=== PATIENT | male | born 1965 | race Caucasian/White ===

== ENCOUNTER 2020-11-25 17:47 | Emergency (ER) | payer OTHER, SELFPAY ==
[2020-11-25 19:40] VITALS: BP 151/76; PULSE 85; RESP 18; TEMP 36.7; O2SAT 97; BMI 33.0
--- NOTE | 2020-11-25 20:41 | ED_ITS ---
HPI - Wound/Laceration General Chief Complaint: Wound/Laceration Stated Complaint: lac Time Seen by Provider: 11/25/20 20:03 Source: patient Mode of arrival: ambulatory Limitations: no limitations History of Present Illness HPI narrative: Patient tells me he was taking out the trash and there was a metal broom stick which was broken and he cut his hand on this. He has a laceration to the left 4th digit. Tetanus out of date. Onset (ago): hour(s) Extremity Location: left: hand (Fourth digit) Place: home Patient tetanus UTD: No Context: accidental Associated symptoms: none Related Data Allergies Allergy/AdvReac Type Severity Reaction Status Date / Time No Known Allergies Allergy Verified 11/25/20 20:09 Review of Systems Review of Systems: Yes all other systems are reviewed and are negative Constitutional: Constitutional: Reports no additional constitutional complaints, Denies body ache(s), Denies chills, Denies fever(s), Denies headache(s) and Denies weakness Eyes: Eyes: Reports no additional eye complaints and Denies change in vision ENT: Reports system reviewed and no additional complaints, except as documented, Denies dizziness, Denies headache(s), Denies nasal congestion, Denies nasal discharge and Denies neck pain Cardiovascular: Cardiovascular: Reports no additional cardiovascular complaints, Denies chest pain, Denies leg edema and Denies dyspnea Respiratory: Respiratory: Reports no additional respiratory complaints, Denies cough and Denies dyspnea Gastrointestinal: Gastrointestinal: Reports no additional gastrointestinal com plaints, Denies abdominal pain, Denies diarrhea, Denies nausea and Denies vomiting Genitourinary: Genitourinary: Denies urinary incontinence Musculoskeletal: Musculoskeletal: Reports no additional musculoskeletal complaints, Denies back pain, Denies arthralgias, Denies joint swelling, Denies neck pain, Denies numbness and Denies tingling Integumentary/Breasts: Skin/Breast: Reports system reviewed and no additional complaints, except as docu and Denies rash Comments: +skin laceration Neurologic: Reports system reviewed and no additional complaints, except as documented, Denies Abnormal speech present, Denies dizziness, Denies headache(s), Denies numbness, Denies tingling and Denies weakness PMFSH Past Medical History Attestation statement: The following information was validated with the patient. Source: old records reviewed and nursing notes reviewed Medical History Back complaints Social History Social History Advance Directives: No Advance Directives Information Provided: Yes Physical Exam Vital Signs: Vital Signs: Last Vital Signs Temp 98.0 F 11/25/20 19:40 Pulse 85 11/25/20 19:40 Resp 18 11/25/20 19:40 BP 151/76 H 11/25/20 19:40 Pulse Ox 97 11/25/20 19:40 Body Mass Index 33.0 Const: General: cooperative, healthy appearing, comfortable and no acute distress Orientation/consciousness: patient oriented x3 Limitations: no limitations HENMT: Head: Yes normal to inspection Ears: hearing grossly normal bilaterally General nose exam: Normal external nose present Face and sinus: Yes normal facial exam Mouth: Normal oral and palatal mucosa present Throat: Yes posterior oropharynx normal Eyes: General: appearance normal, both eyes and all related structures Pupils: Equal, round and reactive pupils present Neck: Neck: Yes normal visual inspection Chest: Chest palpation & inspection: normal inspection of the chest Resp: Effort & Inspection: normal respiratory effort Auscultation: clear to auscultation bilaterally Cardio: Rate: regular rate Rhythm: regular rhythm Peripheral pulses: Peripheral pulses 2+ throughout GI: Inspection: Yes normal to inspection Palpation (GI): Soft to palpation and nontender Auscultation: normal bowel sounds Back/Spine/Pelvis: Thoracic/Lumbar Spine: thoracic and lumbar spine normal to inspection Skin: General skin exam: no rashes or lesions noted Neuro: General: patient oriented x3, no focal motor deficits and normal sensation to monofilament Cranial nerves: Yes Equal, round and reactive pupils present Cognition (Neuro): normal cognition Speech: No Abnormal speech present Gait exam (Neuro): Normal gait present Motor exam (neuro): 5/5 motor strength present throughout Extrem: General: Yes normal to inspection Hand/finger images: 1. 3 cm laceration with active bleeding noted. Patient is able to flex and extend the finger with no difficulty. Normal cap refill distally Course Course Course Narrative: Laceration to left 4th digit. Full range of motion of the affected digit. Tetanus was updated. See procedure note. Reviewed worrisome signs and symptoms and when to return to the emergency department. Comfortable discharge home. Procedures Laceration Laceration 1: Site: upper extremity Side (If applicable): left Size (cm): 3 Description: linear Depth: simple, single layer Local Anesthetic: lidocaine 2% Pre-repair: wound explored Skin layer closed with: nylon Size (cm): 5-0 Number of sutures: 6 Technique: simple, interrupted Discharge Plan Discharge Clinical Impression: Laceration Patient Disposition: Home, Self-Care Instructions: Finger Laceration (ED) Additional Instructions: Water may run over as discussed Wash with soap and water daily watch for signs of infection (fever, redness, drainage) Sutures out in 7-10 days Referrals: Castillo Luo MD [Primary Care Provider] - 2 days
[2020-11-25] MEDS: Lidocaine HCl 2 % MPF 5 ML VIAL SUBCUT (20:50)
== END 2020-11-25 21:10 | disposition home or self-care (01) ==
PROVIDERS: Emergency Provider Emergency Medicine; PCP Internal Medicine
DX: S61.215A Laceration without foreign body of left ring finger without damage to nail, initial encounter (principal); W26.8XXA Contact with other sharp object(s), not elsewhere classified, initial encounter; Y93.E9 Activity, other interior property and clothing maintenance; Y92.019 Unspecified place in single-family (private) house as the place of occurrence of the external cause; Y99.9 Unspecified external cause status
CPT/HCPCS: 12002; 90471; 90715; 99284

== ENCOUNTER 2020-12-14 14:31 | Outpatient (REF) | payer OTHER, SELFPAY | END 2020-12-14 14:32 | disposition home or self-care (01) | LOC: HO.LAB 14:31 | PROVIDERS: Visit Provider Internal Medicine | DX: Z20.822 Contact with and (suspected) exposure to COVID-19 (principal) | CPT/HCPCS: 36415; C9803; U0003 ==

== ENCOUNTER → 2020-12-25 07:49 | Outpatient (BNVA) | payer SELFPAY | PROVIDERS: PCP Internal Medicine; Visit Provider Internal Medicine | DX: Z02.79 Encounter for issue of other medical certificate (principal) ==

== ENCOUNTER 2020-12-25 08:49 | Outpatient (REF) | payer OTHER, SELFPAY | END 2020-12-25 08:50 | disposition home or self-care (01) | LOC: HO.LAB 08:49 | PROVIDERS: PCP Internal Medicine; Visit Provider Internal Medicine | DX: Z20.822 Contact with and (suspected) exposure to COVID-19 (principal) | CPT/HCPCS: 36415; C9803; U0003 ==

== ENCOUNTER 2021-05-07 18:37 | Outpatient (REF) | payer OTHER, SELFPAY | END 2021-05-07 18:38 | disposition home or self-care (01) | LOC: HO.LNP 18:37 | PROVIDERS: Visit Provider Physician Assistant | DX: R31.29 Other microscopic hematuria (principal) | CPT/HCPCS: 87086 ==

== ENCOUNTER 2021-06-28 09:34 | Outpatient (REF) | payer OTHER, SELFPAY | END 2021-06-28 09:35 | disposition home or self-care (01) | LOC: HO.LAB 09:34 | PROVIDERS: PCP Internal Medicine; Visit Provider Internal Medicine | DX: Z20.822 Contact with and (suspected) exposure to COVID-19 (principal) | CPT/HCPCS: C9803; U0003; U0005 ==

== ENCOUNTER 2022-02-22 10:43 | Outpatient (REF) | payer OTHER, SELFPAY ==
[2022-02-22 13:20] LABS: MANUAL DIFF FLAG NO
[2022-02-22 13:25] LABS: Basophils Percent Auto 0.4 % (0-2); Eosinophils Absolute Auto 0.1 X10*3/uL (0.0-0.4); Eosinophils Percent Auto 1.2 % (0-4); Hematocrit 45.8 % (42.0-52.0); Hemoglobin 15.2 g/dl (14.0-18.0); Imm Gran Abs Auto 0.03 X10*3/uL (0.00-0.03); Imm Gran Pct Auto 0.4 % (0.0-0.4); Lymphocytes Absolute Auto 2.9 X10*3/uL (1.2-4.9); Lymphocytes Percent Auto 34.6 % (20-40); Mean Corpuscular HGB Conc 33.2 g/dl (31.0-36.0); Mean Corpuscular Hemoglobin 28.4 pg (27.0-33.0); Mean Corpuscular Volume 85.6 fL (80.0-98.0); Mean Platelet Volume 11.3 fL (9.4-12.4); Monocytes Absolute Auto 0.7 X10*3/uL (0.1-1.2); Monocytes Percent Auto 8.2 % (2-11); Neutrophils Absolute Auto 4.7 x10*3/uL (2.0-8.3); Neutrophils Percent Auto 55.2 % (45-73); Platelet Count 188 X10*3/uL (160-400); Red Blood Count 5.35 X10*6/uL (4.60-5.80); Red Cell Distribution Width 13.3 % (11.0-16.0); White Blood Count 8.4 X10*3/uL (4.8-10.8)
[2022-02-22 13:56] LABS: Alanine Aminotransferase 20 U/L (0-40); Albumin Level 4.3 g/dL (3.5-5.0); Alkaline Phosphatase 98 U/L (39-117); Anion Gap 12 (12-20); Aspartate Amino Transferase 17 U/L (5-37); Bilirubin Total 0.4 mg/dL (0.0-1.0); Blood Urea Nitrogen 11 mg/dL (9-16); Calcium 9.2 mg/dL (8.4-10.2); Carbon Dioxide 27 mmol/L (22-29); Chloride 105 mmol/L (96-108); Cholesterol 243 mg/dL; Estimated Glomerular Filt Rate > 60; Glucose Random 88 mg/dL (60-115); HDL Cholesterol 29 mg/dL; Potassium 4.4 mmol/L (3.3-5.1); Sodium 140 mmol/L (135-145); Total Protein 7.3 g/dL (6.5-8.0); Triglycerides 831 mg/dL
[2022-02-22 14:04] LABS: Prostate Specific Antigen 1.93 ng/mL (<0.05-4.0); Thyroid Stimulating Hormone 4.12 uIU/mL (0.32-4.0); Vitamin D 25-OH Total 21.8 ng/mL (>30)
== END 2022-02-22 10:44 | disposition home or self-care (01) ==
LOC: HO.MANLDS 10:43
PROVIDERS: PCP Internal Medicine; Visit Provider Internal Medicine
DX: Z00.00 Encounter for general adult medical examination without abnormal findings (principal); Z13.220 Encounter for screening for lipoid disorders; Z13.29 Encounter for screening for other suspected endocrine disorder; Z12.5 Encounter for screening for malignant neoplasm of prostate
CPT/HCPCS: 36415; 80053; 80061; 82306; 84153; 84443; 85025

== ENCOUNTER → 2022-12-15 07:43 | Outpatient (BNVA) | payer SELFPAY | PROVIDERS: PCP Internal Medicine; Visit Provider Physician Assistant Medical | DX: Z02.79 Encounter for issue of other medical certificate (principal) ==

== ENCOUNTER 2023-03-14 08:10 | Outpatient (REF) | payer OTHER, SELFPAY ==
--- NOTE | ~2023-03-14 | MR_ITS ---
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 COMPARISON: None available. TECHNIQUE: Multiplanar multisequence MR imaging of the brain was done without IV contrast. FINDINGS: BRAIN VOLUME: Within normal limits within the limitations of qualitative assessment. STRUCTURAL: There is borderline cerebellar tonsillar ectopia at the foramen magnum on the right, which is an anatomic variant. BRAIN AND MENINGES: DWI sequence demonstrates no restricted diffusion to suggest acute or subacute cerebral ischemia. The brain parenchyma is normal in signal intensity. Gradient refocused imaging demonstrates no abnormal susceptibility-weighted signal loss to suggest hemorrhage, hemosiderin staining or abnormal mineralization. No extra-axial fluid collections, space-occupying process or mass effect are identified. Garcia-white matter interface is preserved. There are small perivascular spaces in the inferolateral basal ganglia bilaterally. VENTRICLES AND SUBARACHNOID SPACES: The fourth ventricle is normal in size with a normal appearing third ventricle. The frontal horns of the lateral ventricles are normal in size and configuration. There is [id number] dilatation of the bodies, atria and occipital horns of the lateral ventricles bilaterally with normal-appearing temporal horns. No hydrocephalus is seen. Sulcal spaces appear within normal range. ORBITAL STRUCTURES: The visualized orbital structures are grossly unremarkable within the limitations of the study. VASCULAR: Signal voids are noted in the visualized major intracranial vessels. OSSEOUS STRUCTURES, SINUSES/MASTOIDS, EXTRACRANIAL SOFT TISSUES: Unremarkable. MR/MR head/brain wo con IMPRESSION: 1. [id number]-dzebrukf dilatation of the lateral ventricles bilaterally without hydrocephalus, as detailed above. Significance uncertain. 2. Otherwise unremarkable non-contrast MRI of the brain. No acute intracranial process. No evidence for hemorrhage, infarction, extra-axial fluid collection, space-occupying process or mass effect. 3. Borderline cerebellar tonsillar ectopia at the foramen magnum on the right, which is an anatomic variant.
== END 2023-03-14 08:11 | disposition home or self-care (01) ==
LOC: HO.MRI 08:10
PROVIDERS: PCP Internal Medicine; Visit Provider Internal Medicine
DX: G43.909 Migraine, unspecified, not intractable, without status migrainosus (principal); H54.7 Unspecified visual loss; Z80.8 Family history of malignant neoplasm of other organs or systems
CPT/HCPCS: 70551

== ENCOUNTER 2023-08-18 11:44 | Outpatient (REF) | payer OTHER, SELFPAY ==
--- NOTE | ~2023-08-18 | XR_ITS ---
EXAMINATION: XR HIP, BILATERAL INCLUDING AP PELVIS XR LUMBAR SPINE CLINICAL INFORMATION: Left-sided sciatica. COMPARISON: None available. TECHNIQUE: 2 AP views of the pelvis as well as AP and lateral views of bilateral hips. 3 views of the lumbar spine. FINDINGS: LUMBAR SPINE: Stabilization rods incompletely imaged in the partially imaged lower thoracic spine. Leftward curvature of the thoracolumbar spine. Multilevel degenerative changes in the lumbar spine with multilevel loss of disc space height and degenerative changes most notable at L4-L5 and L5-S1. Facet arthritis in the lower lumbar spine with possible spondylolysis at L5-S1. AP PELVIS AND BILATERAL HIPS: Small rounded pelvic calcifications are likely vascular. Moderate degenerative changes in the bilateral sacroiliac joints. Degenerative changes with joint space narrowing and hypertrophic change in the bilateral hips. Alignment preserved. XR/XR hips DEB min 3V IMPRESSION: 1. Multilevel degenerative changes in the lumbar spine and facet arthritis most notable at L4-L5 and L5-S1. Possible spondylolysis at L5-S1. 2. Moderate degenerative changes in the bilateral hips. Additional imaging with CT scan or MRI should be considered for better visualization as these modalities are much more sensitive for detection of fracture or other underlying pathology.
--- NOTE | ~2023-08-18 | XR_ITS ---
EXAMINATION: XR HIP, BILATERAL INCLUDING AP PELVIS XR LUMBAR SPINE CLINICAL INFORMATION: Left-sided sciatica. COMPARISON: None available. TECHNIQUE: 2 AP views of the pelvis as well as AP and lateral views of bilateral hips. 3 views of the lumbar spine. FINDINGS: LUMBAR SPINE: Stabilization rods incompletely imaged in the partially imaged lower thoracic spine. Leftward curvature of the thoracolumbar spine. Multilevel degenerative changes in the lumbar spine with multilevel loss of disc space height and degenerative changes most notable at L4-L5 and L5-S1. Facet arthritis in the lower lumbar spine with possible spondylolysis at L5-S1. AP PELVIS AND BILATERAL HIPS: Small rounded pelvic calcifications are likely vascular. Moderate degenerative changes in the bilateral sacroiliac joints. Degenerative changes with joint space narrowing and hypertrophic change in the bilateral hips. Alignment preserved. XR/XR lumbar spine 2-3V IMPRESSION: 1. Multilevel degenerative changes in the lumbar spine and facet arthritis most notable at L4-L5 and L5-S1. Possible spondylolysis at L5-S1. 2. Moderate degenerative changes in the bilateral hips. Additional imaging with CT scan or MRI should be considered for better visualization as these modalities are much more sensitive for detection of fracture or other underlying pathology.
== END 2023-08-18 11:45 | disposition home or self-care (01) ==
LOC: HO.XRAY 11:44
PROVIDERS: PCP Internal Medicine; Visit Provider Physician Assistant
DX: M54.42 Lumbago with sciatica, left side (principal); M47.817 Spondylosis without myelopathy or radiculopathy, lumbosacral region
CPT/HCPCS: 72100; 73522

== ENCOUNTER 2023-09-18 18:25 | Outpatient (REF) | payer OTHER, SELFPAY ==
--- NOTE | ~2023-09-18 | MR_ITS ---
EXAMINATION: MR LUMBAR SPINE WITHOUT CONTRAST CLINICAL INFORMATION: Lumbago with sciatica left side, DDD, rule out herniation. COMPARISON: Lumbar spine radiographs on 08/18/2023. TECHNIQUE: MRI of the lumbar spine was obtained using routine sequences without contrast. FINDINGS: Partially imaged posterior spinal fusion at T10 and T11. Mild levocurvature of the lumbar spine. Mild retrolisthesis at L4-5 and L5-S1. No abnormal bone marrow signal. The vertebral body heights are preserved. Multilevel disc desiccation without significant disc height loss. Multilevel endplate osteophytosis. The visualized spinal cord is normal in caliber. No abnormal cord signal. The conus medullaris terminates at L1. T12-L1: No significant spinal canal or neural foraminal narrowing. L1-2: Bilateral facet arthrosis. No significant spinal canal or neural foraminal narrowing. L2-3: Small disc bulge and bilateral facet arthrosis. No significant spinal canal or neural foraminal narrowing. L3-4: Diffuse disc bulge with superimposed left foraminal disc protrusion. Annular fissure and bilateral facet arthrosis. No significant spinal canal stenosis. Mild left greater than right neural foraminal narrowing with the disc abutting the exiting L3 nerve roots bilaterally. L4-5: Diffuse disc bulge extending into the bilateral neural foramina. Annular fissure and bilateral facet arthrosis. There is also prominence of the dorsal epidural fat. Mild spinal canal stenosis. Mild to moderate left and mild right neural foraminal narrowing with the disc abutting the exiting L4 nerve roots bilaterally. L5-S1: Diffuse disc bulge with superimposed central disc protrusion. Annular fissure and bilateral facet arthrosis. There is also prominence of the ventral and dorsal epidural fat. Moderate spinal canal stenosis with mass effect on the cauda equina nerve roots. Moderate to severe left and mild right neural foraminal narrowing with the disc abutting the exiting L5 nerve roots bilaterally. There is 3.2 x 2.2 cm lipoma in the left paravertebral musculature. Right renal cyst. MR/MR lumbar spine wo con IMPRESSION: Multilevel lumbar spondylosis with superimposed epidural lipomatosis as described above, most notable at L5-S1 where there is moderate spinal canal stenosis with mass effect on the cauda equina nerve roots. There is also associated moderate to severe left neural foraminal narrowing with the disc abutting the exiting L5 nerve roots bilaterally. Mild spinal canal stenosis also identified at L4-5.
== END 2023-09-18 18:26 | disposition home or self-care (01) ==
LOC: HO.MRI 18:25
PROVIDERS: PCP Internal Medicine; Visit Provider Physician Assistant
DX: M54.42 Lumbago with sciatica, left side (principal)
CPT/HCPCS: 72148

== ENCOUNTER 2024-01-31 06:34 | Outpatient (REF) | payer OTHER, SELFPAY ==
[2024-01-31 11:11] LABS: MANUAL DIFF FLAG NO
[2024-01-31 11:14] LABS: Basophils Percent Auto 0.4 % (0-2); Eosinophils Absolute Auto 0.1 X10*3/uL (0.0-0.4); Eosinophils Percent Auto 1.8 % (0-4); Hematocrit 47.9 % (42.0-52.0); Hemoglobin 15.8 g/dl (14.0-18.0); Imm Gran Abs Auto 0.03 X10*3/uL (0.00-0.03); Imm Gran Pct Auto 0.4 % (0.0-0.4); Lymphocytes Absolute Auto 2.4 X10*3/uL (1.2-4.9); Lymphocytes Percent Auto 32.8 % (20-40); Mean Corpuscular Hemoglobin 28.8 pg (27.0-33.0); Mean Corpuscular Volume 87.2 fL (80.0-98.0); Mean Platelet Volume 11.6 fL (9.4-12.4); Monocytes Absolute Auto 0.6 X10*3/uL (0.1-1.2); Monocytes Percent Auto 7.7 % (2-11); Neutrophils Absolute Auto 4.2 x10*3/uL (2.0-8.3); Neutrophils Percent Auto 56.9 % (45-73); Platelet Count 208 X10*3/uL (160-400); Red Blood Count 5.49 X10*6/uL (4.60-5.80); Red Cell Distribution Width 13.5 % (11.0-16.0); White Blood Count 7.4 X10*3/uL (4.8-10.8)
[2024-01-31 11:23] LABS: Estimated Average Glucose 123 mg/dL; Hemoglobin A1c % 5.9 % (<6.0)
[2024-01-31 12:42] LABS: Prostate Specific Antigen 1.45 ng/mL (<0.05-4.0)
[2024-01-31 14:00] LABS: Alanine Aminotransferase 26 U/L (0-40); Albumin Level 3.9 g/dL (3.5-5.0); Alkaline Phosphatase 96 U/L (39-117); Anion Gap 12 (12-20); Aspartate Amino Transferase 28 U/L (5-37); Bilirubin Total 0.2 mg/dL (0.0-1.0); Blood Urea Nitrogen 15 mg/dL (9-16); Calcium 9.1 mg/dL (8.4-10.2); Carbon Dioxide 23 mmol/L (22-29); Chloride 109 mmol/L (96-108); Cholesterol 321 mg/dL (<200); Estimated Glomerular Filt Rate > 60; Glucose Random 112 mg/dL (60-115); HDL Cholesterol 26 mg/dL (>40); Sodium 140 mmol/L (135-145); Total Protein 7.4 g/dL (6.5-8.0); Triglycerides 1297 mg/dL (<150); Vitamin D 25-OH Total 21.7 ng/mL (>30)
[2024-02-03 13:19] LABS: TS Negative Control Passed; TS Panel A 0; TS Panel B 0; TS Positive Control Passed; TSpotTB Negative (Negative)
== END 2024-01-31 06:35 | disposition home or self-care (01) ==
LOC: HO.HMGCLDS 06:34
PROVIDERS: PCP Internal Medicine; Visit Provider Physician Assistant
DX: Z00.00 Encounter for general adult medical examination without abnormal findings (principal); Z12.5 Encounter for screening for malignant neoplasm of prostate; Z11.1 Encounter for screening for respiratory tuberculosis; Z13.6 Encounter for screening for cardiovascular disorders; L40.0 Psoriasis vulgaris; Z79.899 Other long term (current) drug therapy
CPT/HCPCS: 36415; 80053; 80061; 82306; 83036; 84153; 85025; 86481

== ENCOUNTER 2024-02-12 10:30 | Outpatient (AMB) | payer OTHER, SELFPAY ==
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
[2024-02-12 10:45] VITALS: BP 142/80; PULSE 77; RESP 16; O2SAT 97; BMI 34.6
== END 2024-02-12 11:08 | disposition home or self-care (01) ==
PROVIDERS: PCP Internal Medicine; Visit Provider Anesthesiology
DX: M51.36 Other intervertebral disc degeneration, lumbar region (principal); M47.816 Spondylosis without myelopathy or radiculopathy, lumbar region; G58.9 Mononeuropathy, unspecified
CPT/HCPCS: 99204

== ENCOUNTER → 2024-02-12 10:33 | Outpatient (BNVA) | payer OTHER, SELFPAY | PROVIDERS: PCP Internal Medicine; Visit Provider Anesthesiology ==

== ENCOUNTER 2024-05-21 06:16 | Outpatient (REF) | payer OTHER, SELFPAY | END 2024-05-21 06:17 | disposition home or self-care (01) | LOC: CF 06:16 | PROVIDERS: Visit Provider Anesthesiology | DX: M51.36 Other intervertebral disc degeneration, lumbar region (principal); M47.816 Spondylosis without myelopathy or radiculopathy, lumbar region; G58.9 Mononeuropathy, unspecified; M53.3 Sacrococcygeal disorders, not elsewhere classified; M46.1 Sacroiliitis, not elsewhere classified; G89.4 Chronic pain syndrome; Z53.8 Procedure and treatment not carried out for other reasons | CPT/HCPCS: J2795; Q9967 ==

== ENCOUNTER 2024-05-21 08:52 | Outpatient (AMB) | payer OTHER, SELFPAY ==
[2024-05-21 09:00] VITALS: BP 128/60; PULSE 64; RESP 16; O2SAT 97; BMI 34.6
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
== END 2024-05-21 09:35 | disposition home or self-care (01) ==
LOC: HO.PMCPRC 08:52
PROVIDERS: PCP Internal Medicine; Visit Provider Anesthesiology
DX: M51.36 Other intervertebral disc degeneration, lumbar region (principal); M47.816 Spondylosis without myelopathy or radiculopathy, lumbar region; G58.9 Mononeuropathy, unspecified; M53.3 Sacrococcygeal disorders, not elsewhere classified; M46.1 Sacroiliitis, not elsewhere classified; G89.4 Chronic pain syndrome
CPT/HCPCS: 99214

== ENCOUNTER 2024-06-25 07:02 | Outpatient (REF) | payer OTHER, SELFPAY ==
--- NOTE | ~2024-06-25 | FL_ITS ---
EXAMINATION: XR FLUOROSCOPY WITH IMAGES CLINICAL INFORMATION: Sacrococcygeal disorders, not otherwise specified. COMPARISON: MR lumbar 09/18/2023. CR lumbar and hips 08/18/2023. TECHNIQUE: Fluoroscopy provided to: Dr. Beebe Fluoroscopy time: 0.1 minutes DAP: 0.0691 mGycm2 Images: 2 FINDINGS: 2 images right SI joint with needle in place and contrast injection interarticularly. FL/FL guidance in treatment room IMPRESSION: Fluoroscopic guidance. Please refer to the full operative report for details. Electronically signed by: Major Guerrero MD 08/21/2024 05:04 PM EDT
== END 2024-06-25 07:03 | disposition home or self-care (01) ==
LOC: CF 07:02
PROVIDERS: PCP Internal Medicine; Visit Provider Anesthesiology
DX: M53.3 Sacrococcygeal disorders, not elsewhere classified (principal); M51.36 Other intervertebral disc degeneration, lumbar region; G58.9 Mononeuropathy, unspecified; M46.1 Sacroiliitis, not elsewhere classified; G89.4 Chronic pain syndrome
CPT/HCPCS: 27096; J2795; Q9967

== ENCOUNTER 2024-06-25 07:47 | Outpatient (AMB) | payer OTHER, SELFPAY ==
[2024-06-25 07:59] VITALS: BP 148/68; PULSE 60; RESP 17; O2SAT 97
--- NOTE | 2024-06-25 07:59 | MHC.OFFVIS ---
Vital Signs 06/25/24 07:59 06/25/24 08:21 BP 148/68 H 150/70 H Blood Pressure Location Lt brachial Lt brachial Position Sitting Sitting Respiration 17 17 Pulse 60 52 Pulse Source Pulse Oximeter Pulse Oximeter Pulse Oximetry (%) 97 97 Oxygen Delivery Method Room Air Room Air Comment Pre-op Post-op Intake Visit Reasons: RIGHT DIAGNOSTIC SIJ INJECTION Allergies No Known Allergies Allergy (Verified 05/21/24 09:41) PFSH Medical History Back complaints Social History (Updated 02/09/24 @ 10:23 by Melissa Diggs) Patient Tobacco Use Status: Current someday Tobacco user Tobacco use type: Cigar Physical Exam Vital Signs: Last Vital Signs Pulse 52 06/25/24 08:21 Resp 17 06/25/24 08:21 BP 150/70 H 06/25/24 08:21 Pulse Ox 97 06/25/24 08:21 Oxygen Delivery Method Room Air 06/25/24 08:21 Assessment & Plan Assessment & Plan (1) Disc degeneration, lumbar: Code(s): M51.36 - Other intervertebral disc degeneration, lumbar region Category: Medical (2) Spondylosis of lumbar region without myelopathy or radiculopathy: Code(s): M47.816 - Spondylosis without myelopathy or radiculopathy, lumbar region Category: Medical (3) Mononeuropathy, unspecified: Code(s): G58.9 - Mononeuropathy, unspecified Category: Medical (4) Sacroiliac joint dysfunction of right side: Code(s): M53.3 - Sacrococcygeal disorders, not elsewhere classified Category: Medical Plan: Right diagnostic sacroiliac joint injection Informed consent was explained thoroughly to the patient. All questions about benefits and risks for the procedure were answered. Patient came to the operating room and was positioned prone on the operating table with the pillow under the pelvis. Time out was performed delineating name and of the patient, allergies and the nature of the procedure. The lower back and buttocks of the patient were prepped with ChloraPrep prepped and draped with sterile utility towels. C-arm was brought over the operating field and sq picture of patient's pelvis was demonstrated on the screen. For the right joint tilting C-arm contralateral to the site of the joint the most posterior portion of the joints was superimposed with anterior silhouette of the joint. Skin was injected in the projection of the joint slightly medial to the location of the joint with 25 gauge 1/2 inch needle using local lidocaine 2% .After that 22 gauge 3 and 1/2 inch needle was driven to the right joint in tunnel vision fashion. When needle entered the joint capsule injection of the contrast was performed demonstrating intra-articular and minimally periarticular spread of the contrast. After that 5 cc. of ropivacaine 0.5% was injected into the joint. Upon completion of the injections the needle was removed Sterile dressing was applied. Upon completion of the injection patient was taken outside of the operating room to the recovery room where recovered uneventfully. (5) Sacroiliitis: Code(s): M46.1 - Sacroiliitis, not elsewhere classified Category: Medical (6) Chronic pain syndrome: Code(s): G89.4 - Chronic pain syndrome Category: Medical Plan The patient is suffering from multiple pain generators and the nature of the complaints today changed with emphasis on the right sacroiliac joint. I will schedule this patient for diagnostic sacroiliac joint injection. Today the patient's level is low 4/10 and that is will be hardly diagnostic if we will perform injection today. So we will reschedule the procedure for right sacroiliac joint injection in the near future. Orders: Orders FL guidance in treatment room Today M53.3 - Sacrococcygeal disorders, not elsewhere classified Coding Level of Care Code Procedure Only Diagnoses Disc degeneration, lumbar M51.36 Spondylosis of lumbar region without myelopathy or radiculopathy M47.816 Mononeuropathy, unspecified G58.9 Sacroiliac joint dysfunction of right side M53.3 Sacroiliitis M46.1 Chronic pain syndrome G89.4
[2024-06-25 08:21] VITALS: BP 150/70; PULSE 52; RESP 17; O2SAT 97
== END 2024-06-25 08:15 | disposition home or self-care (01) ==
LOC: HO.PMCPRC 07:47
PROVIDERS: PCP Internal Medicine; Visit Provider Anesthesiology
DX: M51.36 Other intervertebral disc degeneration, lumbar region (principal); M47.816 Spondylosis without myelopathy or radiculopathy, lumbar region; G58.9 Mononeuropathy, unspecified; M53.3 Sacrococcygeal disorders, not elsewhere classified; M46.1 Sacroiliitis, not elsewhere classified; G89.4 Chronic pain syndrome
CPT/HCPCS: 27096

== ENCOUNTER 2024-07-01 09:34 | Outpatient (AMB) | payer OTHER, SELFPAY ==
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
[2024-07-01 09:41] VITALS: BP 150/80; PULSE 72; RESP 17; O2SAT 94; BMI 34.2
== END 2024-07-01 09:54 | disposition home or self-care (01) ==
PROVIDERS: PCP Internal Medicine; Visit Provider Anesthesiology
DX: M51.36 Other intervertebral disc degeneration, lumbar region (principal); M47.816 Spondylosis without myelopathy or radiculopathy, lumbar region; G58.9 Mononeuropathy, unspecified; M53.3 Sacrococcygeal disorders, not elsewhere classified; M46.1 Sacroiliitis, not elsewhere classified; G89.4 Chronic pain syndrome
CPT/HCPCS: 99214

== ENCOUNTER → 2024-07-01 09:34 | Outpatient (BNVA) | payer OTHER, SELFPAY | PROVIDERS: PCP Internal Medicine; Visit Provider Anesthesiology ==

== ENCOUNTER 2024-08-13 07:15 | Outpatient (REF) | payer OTHER, SELFPAY | END 2024-08-13 07:16 | disposition home or self-care (01) | LOC: CF 07:15 | PROVIDERS: Visit Provider Anesthesiology | DX: M53.3 Sacrococcygeal disorders, not elsewhere classified (principal) | CPT/HCPCS: 27096; J2795; J3301; Q9967 ==

== ENCOUNTER 2024-08-13 12:57 | Outpatient (AMB) | payer OTHER, SELFPAY ==
--- NOTE | 2024-08-13 13:08 | MHC.OFFVIS ---
Vital Signs 08/13/24 14:03 08/13/24 14:03 BP 143/68 H 153/74 H Blood Pressure Location Lt brachial Lt brachial Position Sitting Sitting Respiration 16 16 Pulse 60 67 Pulse Source Pulse Oximeter Pulse Oximeter Pulse Oximetry (%) 98 97 Oxygen Delivery Method Room Air Room Air Comment pre-op post-op Intake Visit Reasons: RIGHT THERAPEUTIC SIJ INJECTION Allergies No Known Allergies Allergy (Verified 08/13/24 14:04) PFSH Medical History Back complaints Social History (Updated 02/09/24 @ 10:23 by Melissa Diggs) Patient Tobacco Use Status: Current someday Tobacco user Tobacco use type: Cigar Physical Exam Vital Signs: Last Vital Signs Pulse 67 08/13/24 14:03 Resp 16 08/13/24 14:03 BP 153/74 H 08/13/24 14:03 Pulse Ox 97 08/13/24 14:03 Oxygen Delivery Method Room Air 08/13/24 14:03 Assessment & Plan Assessment & Plan (1) Sacroiliitis: Code(s): M46.1 - Sacroiliitis, not elsewhere classified Category: Medical (2) Sacroiliac joint dysfunction of right side: Code(s): M53.3 - Sacrococcygeal disorders, not elsewhere classified Category: Medical Plan Right therapeutic sacroiliac joint injection. Informed consent was explained thoroughly to the patient. All questions about benefits and risks for the procedure were answered. Patient came to the operating room and was positioned prone on the operating table with the pillow under the pelvis. Time out was performed delineating name and of the patient, allergies and the nature of the procedure. The lower back and buttocks of the patient were prepped with ChloraPrep prepped and draped with sterile utility towels. C-arm was brought over the operating field and sq picture of patient's pelvis was demonstrated on the screen. For the right joint tilting C-arm contralateral to the site of the joint the most posterior portion of the joints was superimposed with anterior silhouette of the joint. Skin was injected in the projection of the joint slightly medial to the location of the joint with 25 gauge 1/2 inch needle using local lidocaine 2% .After that 22 gauge 3 and 1/2 inch needle was driven to the right joint in tunnel vision fashion. When needle entered the joint capsule injection of the contrast was performed demonstrating intra-articular and minimally periarticular spread of the contrast. After that 4 cc. of ropivacaine 0.5% mixed with Kenalog was injected into the joint. Upon completion of the injections the needle was removed, Total dose of Kenalog 40 mg. The needle was removed. Sterile dressing was applied. Upon completion of the injection patient was taken outside of the operating room to the recovery room where recovered uneventfully. Orders: Orders FL guidance in treatment room Today M53.3 - Sacrococcygeal disorders, not elsewhere classified Coding Level of Care Code Procedure Only Diagnoses Sacroiliitis M46.1 Sacroiliac joint dysfunction of right side M53.3
[2024-08-13 14:03] VITALS: BP 143/68; BP 153/74; PULSE 60; PULSE 67; RESP 16; O2SAT 97; O2SAT 98
== END 2024-08-13 13:54 | disposition home or self-care (01) ==
LOC: HO.PMCPRC 12:57
PROVIDERS: PCP Internal Medicine; Visit Provider Anesthesiology
DX: M46.1 Sacroiliitis, not elsewhere classified (principal); M53.3 Sacrococcygeal disorders, not elsewhere classified
CPT/HCPCS: 27096

== ENCOUNTER 2024-09-30 13:48 | Outpatient (AMB) | payer OTHER, SELFPAY ==
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
[2024-09-30 13:58] VITALS: BP 142/72; PULSE 67; RESP 16; O2SAT 99; BMI 31.6
== END 2024-09-30 14:02 | disposition home or self-care (01) ==
LOC: HO.PMC 13:53
PROVIDERS: PCP Internal Medicine; Visit Provider Anesthesiology
DX: M51.369 Other intervertebral disc degeneration, lumbar region without mention of lumbar back pain or lower extremity pain (principal); M47.816 Spondylosis without myelopathy or radiculopathy, lumbar region; G58.9 Mononeuropathy, unspecified; M53.3 Sacrococcygeal disorders, not elsewhere classified; M46.1 Sacroiliitis, not elsewhere classified; G89.4 Chronic pain syndrome
CPT/HCPCS: 99213

== ENCOUNTER → 2024-09-30 13:48 | Outpatient (BNVA) | payer OTHER, SELFPAY | PROVIDERS: PCP Internal Medicine; Visit Provider Anesthesiology ==

== ENCOUNTER → 2024-12-10 08:03 | Outpatient (BNVA) | payer SELFPAY | PROVIDERS: PCP Internal Medicine; Visit Provider Registered Nurse | DX: Z02.79 Encounter for issue of other medical certificate (principal) ==

== ENCOUNTER 2025-02-14 06:26 | Outpatient (REF) | payer OTHER, SELFPAY ==
[2025-02-14 10:14] LABS: MANUAL DIFF FLAG NO
[2025-02-14 10:24] LABS: Basophils Percent Auto 0.3 % (0-2); Eosinophils Absolute Auto 0.1 X10*3/uL (0.0-0.4); Eosinophils Percent Auto 0.8 % (0-4); Hematocrit 46.8 % (42.0-52.0); Hemoglobin 15.7 g/dl (14.0-18.0); Imm Gran Abs Auto 0.03 X10*3/uL (0.00-0.03); Imm Gran Pct Auto 0.4 % (0.0-0.4); Lymphocytes Absolute Auto 2.3 X10*3/uL (1.2-4.9); Lymphocytes Percent Auto 29.6 % (20-40); Mean Corpuscular HGB Conc 33.5 g/dl (31.0-36.0); Mean Corpuscular Volume 86.3 fL (80.0-98.0); Mean Platelet Volume 11.4 fL (9.4-12.4); Monocytes Absolute Auto 0.6 X10*3/uL (0.1-1.2); Monocytes Percent Auto 7.2 % (2-11); Neutrophils Absolute Auto 4.9 x10*3/uL (2.0-8.3); Neutrophils Percent Auto 61.7 % (45-73); Platelet Count 183 X10*3/uL (160-400); Red Blood Count 5.42 X10*6/uL (4.60-5.80); Red Cell Distribution Width 13.1 % (11.0-16.0); White Blood Count 7.9 X10*3/uL (4.8-10.8)
[2025-02-14 10:35] LABS: Estimated Average Glucose 120 mg/dL; Hemoglobin A1c % 5.8 % (<6.0)
[2025-02-14 10:39] LABS: Alanine Aminotransferase 24 U/L (0-40); Albumin Level 4.3 g/dL (3.5-5.0); Alkaline Phosphatase 82 U/L (39-117); Anion Gap 9 (12-20); Aspartate Amino Transferase 24 U/L (5-37); Bilirubin Total 0.5 mg/dL (0.0-1.0); Blood Urea Nitrogen 19 mg/dL (9-16); Carbon Dioxide 24 mmol/L (22-29); Chloride 112 mmol/L (96-108); Cholesterol 129 mg/dL (<200); Estimated Glomerular Filt Rate > 60; Glucose Random 99 mg/dL (60-115); HDL Cholesterol 37 mg/dL (>40); LDL Cholesterol Calculated 59 mg/dL (<100); Potassium 3.9 mmol/L (3.3-5.1); Sodium 141 mmol/L (135-145); Total Protein 7.4 g/dL (6.5-8.0); Triglycerides 167 mg/dL (<150)
[2025-02-14 10:49] LABS: Prostate Specific Antigen 1.48 ng/mL (<0.05-4.0)
[2025-02-14 11:00] LABS: Vitamin D 25-OH Total 76.5 ng/mL (>30)
[2025-02-17 14:48] LABS: TS Negative Control Passed; TS Panel A 0; TS Panel B 0; TS Positive Control Passed; TSpotTB Negative (Negative)
== END 2025-02-14 06:27 | disposition home or self-care (01) ==
LOC: HO.HMGCLDS 06:26
PROVIDERS: PCP Internal Medicine; Visit Provider Physician Assistant
DX: Z00.00 Encounter for general adult medical examination without abnormal findings (principal); Z12.5 Encounter for screening for malignant neoplasm of prostate; Z13.1 Encounter for screening for diabetes mellitus; Z13.6 Encounter for screening for cardiovascular disorders
CPT/HCPCS: 36415; 80053; 80061; 82306; 83036; 84153; 85025; 86481

== ENCOUNTER 2025-02-20 15:09 | Outpatient (AMB) | payer OTHER, SELFPAY ==
[2025-02-20 15:10] VITALS: BP 140/71; PULSE 64; O2SAT 100; BMI 31.3
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
== END 2025-02-20 15:44 | disposition home or self-care (01) ==
LOC: HO.PMC 15:10
PROVIDERS: PCP Internal Medicine; Visit Provider Anesthesiology
DX: M51.369 Other intervertebral disc degeneration, lumbar region without mention of lumbar back pain or lower extremity pain (principal); M47.816 Spondylosis without myelopathy or radiculopathy, lumbar region; G58.9 Mononeuropathy, unspecified; M53.3 Sacrococcygeal disorders, not elsewhere classified; M46.1 Sacroiliitis, not elsewhere classified; G89.4 Chronic pain syndrome; G89.29 Other chronic pain
CPT/HCPCS: 99213

== ENCOUNTER → 2025-02-20 15:09 | Outpatient (BNVA) | payer OTHER, SELFPAY | PROVIDERS: PCP Internal Medicine; Visit Provider Anesthesiology ==

== ENCOUNTER 2025-04-15 06:14 | Outpatient (REF) | payer OTHER, SELFPAY ==
--- NOTE | ~2025-04-15 | FL_ITS ---
EXAMINATION: XR FLUOROSCOPY WITH IMAGES CLINICAL INFORMATION: Left SI joint pain management injection. COMPARISON: None available. TECHNIQUE: Fluoroscopy provided to: Dr. Beebe Fluoroscopy time: 0.0 minutes DAP: 0.0520 mGycm2 Images: 2 FINDINGS: 2 fluoroscopic spot images taken during injection of the left SI joint. Please refer to the full procedural report for details. FL/FL guidance in treatment room IMPRESSION: Fluoroscopic guidance. Electronically signed by: Major Guerrero MD 04/15/2025 03:45 PM EDT
--- OUTSIDE RECORDS SUMMARY | 2025-04-15 06:16 | XMS_ITS | Patient Health Record ---
[facility] Address [address] [place] [id number] Care Team Providers Care Counseling Director Name Role Phone Valerio GO, Castillo Primary Care Provider Nohemi Rangel Unavailable [phone] Allergies No Known Allergies Reason For Referral No Information Medications Medication SIG (Take, Route, Fr equency, Duration) Notes Start Date End Date Status Loratadine 10 MG TAKE 1 TABLET BY RODRIGO TH EVERY DAY Oral for 30 Days Active Social History Tobacco Use: Social History Observation Description Date Details (start date - stop date) Former Smoker NA - NA Tobacco Use/Smoking Question Answer Notes Are you a: former smoker Additional Findings: Tobacco Non-User Current no n-smoker Alcohol Screen Question Answer Notes Did you have a drink containing alcohol in the p ast year? No Points 0 Interpretation Negative Tobacco use other than smoking: Question Answer Notes Are you an other tobacco user? No Plan Of Treatment Pending Test Test Name Order Date X ray : Foot, left 3V 06/28/2023 X ray : Foot, right 3V 06/28/2023 Insurance Providers Payer Name Payer Address Payer Phone Subscriber Number Group Number Insured Name Patient Relationship to Insured Coverage Start Date Coverage End Date [employer] [address] [place] [address] [id number] Nadir, Volodymyr Self - patient is the insured Medical (General) History Medical History History ICD Code Back,Hip,and Knee pain Broken bones CAD (Cholesterol) Headaches/Migraines Numbness Psoriasis/eczema Reflux ( GERD) Chicken pox Joint implants/screws Surgical History Surgery Date(Month/Year) back surgery 2017
== END 2025-04-15 06:15 | disposition home or self-care (01) ==
LOC: CF 06:14
PROVIDERS: Visit Provider Anesthesiology
DX: M53.3 Sacrococcygeal disorders, not elsewhere classified (principal); G89.29 Other chronic pain
CPT/HCPCS: 27096; J2003; J2795; Q9967

== ENCOUNTER 2025-04-15 13:19 | Outpatient (AMB) | payer OTHER, SELFPAY ==
[2025-04-15 13:28] VITALS: BP 128/64; PULSE 66; RESP 16; O2SAT 98
--- NOTE | 2025-04-15 13:28 | MHC.OFFVIS ---
Vital Signs 04/15/25 13:28 04/15/25 14:04 BP 128/64 140/76 H Blood Pressure Location Lt brachial Lt brachial Position Sitting Sitting Respiration 16 16 Pulse 66 86 Pulse Source Pulse Oximeter Pulse Oximeter Pulse Oximetry (%) 98 98 Oxygen Delivery Method Room Air Room Air Intake Visit Reasons: LEFT DIAGNOSTIC SIJ INJECTION Counter Molder Required: No Allergies No Known Allergies Allergy (Verified 04/15/25 13:28) Medication List - Last Reconciled 04/15/25 by Cristiana Cotres LPN atorvastatin 20 mg PO DAILY loratadine 10 mg PO DAILY nabumetone 500 mg PO BID ustekinumab (Stelara) mg subcut PFSH Medical History Back complaints Social History Patient Tobacco Use Status: Current someday Tobacco user Tobacco use type: Cigar Physical Exam Vital Signs: Last Vital Signs Pulse 86 04/15/25 14:04 Resp 16 04/15/25 14:04 BP 140/76 H 04/15/25 14:04 Pulse Ox 98 04/15/25 14:04 Oxygen Delivery Method Room Air 04/15/25 14:04 Assessment & Plan Assessment & Plan (1) Chronic left SI joint pain: Code(s): M53.3 - Sacrococcygeal disorders, not elsewhere classified; G89.29 - Other chronic pain Category: Medical (2) Sacroiliitis: Code(s): M46.1 - Sacroiliitis, not elsewhere classified Category: Medical Plan Left diagnostic sacroiliac joint injection Informed consent was explained thoroughly to the patient.? All questions about benefits and risks for the procedure were answered. Patient came to the operating room she was positioned prone on the operating table with the pillow under her abdomen.? Time-out was performed delineating correct site and side of the procedure name and date of of the patient. Her lower back and buttocks was prepped with ChloraPrep prepped and draped with sterile towels.C-arm was brought over the operating field and sq picture of patient's pelvis was demonstrated on the screen.? For the left joint tilting C-arm contralateral to the site of the joint of the patient the most posterior portion of the joints were superimposed of the anterior portion of the joint . Skin was injected in the projection of the joint slightly medial to the location of the joint with 25 gauge 1/2 inch needle using local lidocaine 2% mixed with ropivacaine 0.5% 1 After that 22 gauge 3.5 inch needle was driven to the left joint in tunnel vision fashion.? When needle entered the joint capsule injection of the contrast was performed demonstrating intra-articular and minimally periarticular spread of the contrast.? After that of ropivacaine 0.5% 5 mL was injected into each joint.? Upon completion of the injections the needles were removed and pressure were applied.? Sterile dressing was applied Orders: Orders FL guidance in treatment room Today G89.29 - Other chronic pain, M53.3 - Sacrococcygeal disorders, not elsewhere classified Coding Level of Care Code Procedure Only Diagnoses Chronic left SI joint pain M53.3; G89.29 Sacroiliitis M46.1
[2025-04-15 14:04] VITALS: BP 140/76; PULSE 86; RESP 16; O2SAT 98
--- OUTSIDE RECORDS SUMMARY | 2025-04-15 14:26 | XMS_ITS | Data Portability ---
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 diet improvement Fracture Risk:no history of fractures; no recent explained fracture; no sudden unexplained fractures; no previous musculoskeletal injuries Physical Activity:exercises on a regular basis; recent increase in physical activity; good physical condition Additional Lifestyle Factors:no tobacco use; no alcohol intake; stopped drinking alcohol Depression Risk:never feels sad, empty, or tearful; no loss of interest in activities; no significant changes in weight; no sleep disturbances or insomnia; no agitation; no loss of energy; no feelings of worthlessness or guilt; no thoughts of suicide; no history of depression; no history of mood disorders Hearing:no loss of hearing Vision:no vision problems VALORIE GARCIA [address] [place] [address], [phone], [facility] 02/12/2025 10:37:53
== END 2025-04-15 14:05 | disposition home or self-care (01) ==
LOC: HO.PMCPRC 13:19
PROVIDERS: PCP Internal Medicine; Visit Provider Anesthesiology
DX: M53.3 Sacrococcygeal disorders, not elsewhere classified (principal); M46.1 Sacroiliitis, not elsewhere classified; G89.29 Other chronic pain
CPT/HCPCS: 27096

== ENCOUNTER 2025-04-18 11:04 | Outpatient (AMB) | payer OTHER, SELFPAY ==
--- NOTE | 2025-04-18 11:05 | MHC.OFFVIS ---
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 He reports 90% pain relief for 6 hours after the procedure. Pain today is rated as a 3/10, occurs during positional changes or walking around in daily activities. [employer] Worker daily physical therapy exercises temporarily improved his condition but did not eliminate pain, described as sciatica-like. Historical data reveals successful sacroiliac injection on right side previously, inspiring hope for further steroid intervention on the affected left side. The patient reports frustration due to ongoing discomfort and stress from limited mobility. - Onset and Timing: Pain returned a few hours after the left sacroiliac joint injection performed three days ago. - Quality and Character: Intermittent pain primarily on the left side, with sciatica-like characteristics. - Location: Left sacroiliac joint area, with concurrent neck and lower back muscle pain. - Radiation: Occasionally radiates; previously noted on the right side. - Exacerbating Factors: Positional changes, sitting, standing, walking. - Relieving Factors: Initial relief from injection 3 days ago. Exercises for physical therapy provided temporary improvement. - Activities Interference: Interferes with sitting, standing, walking, and impacts sleep. - Affect: Pain causing frustration due to limited mobility, impacting daily activities. - Analgesia: Pain level initially reduced to zero post-injection, now approximately level 3. - Adverse Effects: Not specifically outlined in conversation. - Activities of Daily Living: Affected by pain, which limits basic functional movements such as getting up from seated positions. - Aberrant Drug-Related Behaviors: None reported or discussed. [facility] Medical History Back complaints Social History Patient Tobacco Use Status: Current someday Tobacco user Tobacco use type: Cigar Review of Systems Const Details: - Musculoskeletal: Reports sacroiliac joint pain, lower back muscle pain, and neck pain. - Neurological: Reports symptoms consistent with sciatica. Physical Exam Vital Signs: Last Vital Signs Pulse 77 04/18/25 11:08 BP 157/79 H 04/18/25 11:08 Pulse Ox 99 04/18/25 11:08 Oxygen Delivery Method Room Air 04/18/25 11:08 General: awake, alert, oriented. Answers questions appropriately. Fully engaged in examination. Skin: warm, dry, intact HEENT: Normocephalic. Hearing intact. Cardiac: External chest normal in appearance. Respiratory: No cough, audible wheezing or stridor. Abdomen: without gross distension. MS: No obvious swelling or deformities. Able to transition from sit to stand unassisted. Ambulates with bilaterally normal heel strike and toe off Neurological: Oriented to person, place, time and situation. Thought process intact. No gait abnormalities appreciated. Psychiatric: Appropriate mood and affect. Good judgment and insight. Results Reviewed Results Reviewed: 09/18/23 MR/MR lumbar spine wo con FINDINGS: Partially imaged posterior spinal fusion at T10 and T11. Mild levocurvature of the lumbar spine. Mild retrolisthesis at L4-5 and L5-S1. No abnormal bone marrow signal. The vertebral body heights are preserved. Multilevel disc desiccation without significant disc height loss. Multilevel endplate osteophytosis. The visualized spinal cord is normal in caliber. No abnormal cord signal. The conus medullaris terminates at L1. T12-L1: No significant spinal canal or neural foraminal narrowing. L1-2: Bilateral facet arthrosis. No significant spinal canal or neural foraminal narrowing. L2-3: Small disc bulge and bilateral facet arthrosis. No significant spinal canal or neural foraminal narrowing. L3-4: Diffuse disc bulge with superimposed left foraminal disc protrusion. Annular fissure and bilateral facet arthrosis. No significant spinal canal stenosis. Mild left greater than right neural foraminal narrowing with the disc abutting the exiting L3 nerve roots bilaterally. L4-5: Diffuse disc bulge extending into the bilateral neural foramina. Annular fissure and bilateral facet arthrosis. There is also prominence of the dorsal epidural fat. Mild spinal canal stenosis. Mild to moderate left and mild right neural foraminal narrowing with the disc abutting the exiting L4 nerve roots bilaterally. L5-S1: Diffuse disc bulge with superimposed central disc protrusion. Annular fissure and bilateral facet arthrosis. There is also prominence of the ventral and dorsal epidural fat. Moderate spinal canal stenosis with mass effect on the cauda equina nerve roots. Moderate to severe left and mild right neural foraminal narrowing with the disc abutting the exiting L5 nerve roots bilaterally. There is 3.2 x 2.2 cm lipoma in the left paravertebral musculature. Right renal cyst. IMPRESSION: Multilevel lumbar spondylosis with superimposed epidural lipomatosis as described above, most notable at L5-S1 where there is moderate spinal canal stenosis with mass effect on the cauda equina nerve roots. There is also associated moderate to severe left neural foraminal narrowing with the disc abutting the exiting L5 nerve roots bilaterally. Mild spinal canal stenosis also identified at L4-5. Assessment & Plan Assessment & Plan (1) Disc degeneration, lumbar: Code(s): M51.36 - Other intervertebral disc degeneration, lumbar region Category: Medical (2) Spondylosis of lumbar region without myelopathy or radiculopathy: Code(s): M47.816 - Spondylosis without myelopathy or radiculopathy, lumbar region Category: Medical (3) Mononeuropathy, unspecified: Code(s): G58.9 - Mononeuropathy, unspecified Category: Medical (4) Sacroiliac joint dysfunction of right side: Code(s): M53.3 - Sacrococcygeal disorders, not elsewhere classified Category: Medical (5) Sacroiliitis: Code(s): M46.1 - Sacroiliitis, not elsewhere classified Category: Medical (6) Chronic pain syndrome: Code(s): G89.4 - Chronic pain syndrome Category: Medical (7) Chronic left SI joint pain: Code(s): M53.3 - Sacrococcygeal disorders, not elsewhere classified; G89.29 - Other chronic pain Category: Medical Plan The primary focus is the management of chronic sacroiliac joint dysfunction pain. A left-sided steroid injection will be planned, given consent. Remote history of successful treatment on the opposite side influenced this decision. Other interventions, such as radiofrequency ablation, were discussed but deferred due to potential insurance limitations. The patient was instructed on readjusting a sacroiliac belt, accounting for recent weight loss, to utilize during daily activities for added support and pain relief. Continuous assessment of treatment response will determine any need for future intervention. I discussed with the patient the administration of a steroid injection, emphasizing potential for extended relief selene to previous right-side treatment. We reviewed alternate strategies including radiofrequency ablation/curonix peripheral nerve stimulator, although insurance coverage may affect options. The patient consented to the treatment plan proposed. He was advised on adjusting his sacroiliac belt to better accommodate recent weight reduction, promoting optimal support. Future follow-ups will assess efficacy and any need for additional interventions. We aim to manage chronic pain effectively balancing efficacy and side effect considerations. Will schedule for fluoroscopy guided left therapeutic sacroiliac joint injection with local anesthetic Patient was informed and verbally consented to the use of an ambient scribe for clinic note documentation during this visit. Patient Instructions: - Await call to schedule the left-sided steroid injection. - Adjust your sacroiliac belt to fit more snugly due to recent weight loss. - Monitor pain levels, focusing on sitting and standing transitions, and report any significant changes. - Follow through with physical therapy exercises as advised for core strength. - Reach out for further instructions if symptoms significantly worsen or you experience new symptoms. Coding Level of Care Code Tele Est Pt Level 3 (46833) Complex EM visit Add On G2211 Diagnoses Disc degeneration, lumbar M51.36 Spondylosis of lumbar region without myelopathy or radiculopathy M47.816 Mononeuropathy, unspecified G58.9 Sacroiliac joint dysfunction of right side M53.3 Sacroiliitis M46.1 Chronic pain syndrome G89.4 Chronic left SI joint pain M53.3; G89.29
[2025-04-18 11:08] VITALS: BP 157/79; PULSE 77; O2SAT 99
--- OUTSIDE RECORDS SUMMARY | 2025-04-18 11:11 | XMS_ITS | Data Portability ---
Author Organization [facility], Home Service Address [address] [place] [address] Assessment Encounter Date Assessment Date Assessment LastModified [...] Lab CMP, serum or plasma 2024 025 [facility], [facility] [place] [address] [address], [address], 02/17/2025 11:30:18 CBC w/ auto diff 2024 025 [facility], [place], [address], 02/12/2025 10:28:51 PSA, serum or plasma 2024 025 [facility], [place], [address], 02/12/2025 10:28:51 lipid panel, blood 2024 025 [facility], [place], [address], 02/12/2025 10:28:51 hemoglobi n A1c, QN, blood 2024 025 [facility], [address] [place] [address] [place], [address], 02/12/2025 10:28:51 vitamin D, 25-hydrox y, total, serum 2024 025 [facility], [address] [place] [address] [place], [address], 02/12/2025 10:28:51 CMP, serum or plasma 2023 024 [facility], [address] [place] [address], [address], 02/01/2024 11:28:12 CBC w/ auto diff 2023 024 [facility], [address] [place] [address], [address], 02/01/2024 11:28:13 lipid panel, blood 2023 024 [facility], [address] [place] [address], [address], 02/01/2024 11:28:13 PSA, serum or plasma 2023 024 [facility], [address] [place] [address], [address], 02/01/2024 11:28:13 hemoglobi n A1c, QN, blood 2023 024 [facility], [address] [place] [address], [address], 02/01/2024 11:28:13 vitamin D, 25-hydrox y, total, serum 2023 024 [facility], [address] [place] [address], [address], 02/01/2024 11:28:13 CMP, serum or plasma 2021 [facility], [address] [place] [address], [address], 02/23/2022 11:54:42 CBC w/ auto diff 2021 [facility], [address] [place] [address], [address], 02/22/2022 09:45:09 lipid panel, blood 2021 [facility], [address] [place] [address], [address], 02/23/2022 11:54:42 PSA, serum or plasma 2021 [facility], [address] [place] [address], [address], 02/22/2022 09:45:09 vitamin D, 25-hydrox y, total, serum 2021 [facility], [address] [place] [address], [address], 02/22/2022 09:45:09 TSH, serum or plasma 2021 [facility], [address] [place] [address], [place], [address], 02/22/2022 09:45:09 Referral urologist referral 2024 025 [facility], [address] [place] [address], [place], [address], 02/14/2025 08:32:52 pain managemen t referral - has hardware in place in his spine 2023 024 [email or web address] [facility], [address] [place] [address] Chao Zimmer, [place], [address], 01/29/2024 08:52:32 Procedures None recorded. Surgeries None recorded. Imaging XR, lumbosacr al spine, 2 or 3 view 2022 023 [facility], [address] [place] [address], [address], 08/21/2023 14:26:52 XR, hip, bilateral , 2 view - bilateral 2022 023 [facility], [address] [place], [address], 08/21/2023 14:27:05 Medication Orders nabumeton e 500 mg tablet 2023 024 [email or web address] [facility][id number], [address] [place], [address], 02/12/2025 09:56:51 prednison e 10 mg tablet 2020 021 [email or web address] [facility][id number], [address] [place], [address], 08/18/2023 10:47:23 tramadol 50 mg tablet 2020 021 [email or web address] [facility][id number], [address] [place], [address], 02/22/2022 09:32:45 Patient TargetsNo targets recorded. Patient [...] ast No observ ation record ed. [email or web address] [facility] (Medical Records) [address] [place], [address], 03/30/2023 23:19:13 08/21/20 23 08/18/2023 XR, lumbo sacra l spine , 2 or 3 view No observ ation record ed. [facility] [address] [place], [address], 08/22/2023 12:50:05 08/21/20 23 08/18/2023 XR, hip, bilat eral, 2 view No observ ation record ed. [facility] [address] [place], [address], 08/22/2023 10:55:24 09/19/20 23 09/18/2023 MRI, lumba r spine , w/o contr ast No observ ation record ed. [facility] (Imaging) [address] [place], [address], 10/13/2023 12:14:02 08/21/20 24 06/25/2024 fluor oscop y evalu ation (PROC ) No observ ation record ed. [email or web address] [facility] (Medical Records) [address] [place], [address], 08/23/2024 10:54:18 Result Notes None recorded. Problems Name Problem SNOMED Code Status Onset Date Resolution Date Notes Provider Name and Address Organization Details Recorded Time Psoriatic arthritis 394375522 Active 2017 Not Available [facility] 19:18:46 Primary erectile dysfunctio n 644938327 Active 2017 Not Available [facility] 19:18:46 Disseminat ed idiopathic skeletal hyperostos is 78585394 Active 2017 Not Available [facility] 19:18:46 Impingemen t syndrome of shoulder region 187283422 Active 2017 Not Available [facility] 1 19:18:46 Fracture of vertebral column 05382717 Active 2017 Not Available [facility] 1 19:18:45 Fracture of tibia 61232375 Active 2017 Not Available [facility] 1 19:18:46 Fracture of rib 99238922 Active 2017 Not Available [facility] 1 19:18:45 Solitary nodule of lung 424807535 Active 2017 Not Available [facility] 1 19:18:45 Hypertrigl yceridemia 911723302 Active 2018 Not Available [facility] 1 19:18:45 Headache 04756246 Active 2021 VALORIE GARCIA [address] [place] [address], [address], [facility] 2 16:25:34 Allergic rhinitis 66207928 Active 2021 Castillo Luo DO [address] [place] [address], [address], [facility] 2 16:58:25 Dental abscess 271873347 Active 2021 VALORIE GARCIA [address] [place] [address], [address], [facility] 2 10:57:02 Non-pressu re ulcer lower limb Active 2022 VALROIE GARCIA [address] [place] [address], [address], [facility] 3 10:57:37 Lumbago with sciatica 577455058 Active 2022 VALORIE GARCIA [address] [place] [address], [address], [facility] 3 11:00:03 Spinal stenosis of lumbar region 07060139 Active 2022 VALORIE GARCIA [address] [place], [address], [facility] 3 09:12:36 Lumbar radiculopa thy 386735402 Active 2022 VALORIE GARCIA [address] [place], [address], [facility] 3 12:15:04 Low back pain 591685171 Active 2023 VALORIE GARCIA [address] [place], [address], [facility] 4 10:50:33 Psoriasis 2775143 Active 2023 VALORIE GARCIA [address] [place], [address], [facility] 4 14:59:37 Hyperlipid emia 19612444 Active 2023 VALORIE GARCIA [address] [place] [address], [address], [facility] 4 09:21:31 Pain in penis 253958397 Active 2024 VALORIE GARCIA [address] [place] [address], [address], [facility] 5 10:24:05 Problem Notes None recorded. Procedures Surgical History Date Name Laterality Status Provider Name and Address Organization Details Recorded Time 018 Corticosteroid Injection completed Castillo Luo DO [address] [place] [address], [address], [facility] Internal [facility] 10/26/2018 11:45:03 018 Corticosteroid Injection completed Castillo Luo DO [address] [place] [address], [address], [facility] 10/24/2018 09:37:34 015 Colonoscopy completed Matilde Quevedo [facility] 12/31/2019 15:05:54 Imaging Results Imaging Date Name Status LastModified by Organiz [facility] Details LastModified Time 03/14/2023 MRI, brain, w/o contrast completed [email or web address] [facility] (Medical Records) [address] [place] [address], [address], 03/30/2023 23:19:13 08/18/2023 XR, lumbosacral spine, 2 or 3 view completed [facility] [address] [place], [address], 08/22/2023 12:50:05 08/18/2023 XR, hip, bilateral, 2 view completed [facility] [address] [place], [address], 08/22/2023 10:55:24 09/18/2023 MRI, lumbar spine, w/o contrast completed [facility] (Imaging) [address] [place], [address], 10/13/2023 12:14:02 06/25/2024 fluoroscopy evaluation (PROC) completed [address] (Medical Records) [address] [place], [address], 08/23/2024 10:54:18 Procedure Notes None recorded. Medical [...] Updated DateTime 2 184.79 cm 32.8 kg/m2 077354. 24 g 77 /min 98 % 98 % 124 mm[Hg] 72 mm[Hg] Castillo Luo, DO [address] [place], [address] [place] [address] Internal Medicine 2 09:34:13 Date Recorded Body height Body mass index (BMI) Body weight Heart rate Oxygen saturation Oxygen saturation in Arterial blood by Pulse oximetry Systolic blood pressure Diastolic blood pressure Provider Name and Address Organization Details Last Updated DateTime 4 182.88 cm 33.4 kg/m2 940239. 72 g 75 /min 98 % 98 % 124 mm[Hg] 68 mm[Hg] Shayy Helm [facility] 4 14:34:06 Date Recorded Body height Body mass index (BMI) Body weight Heart rate Oxygen saturation Oxygen saturation in Arterial blood by Pulse oximetry Systolic blood pressure Diastolic blood pressure Provider Name and Address Organization Details Last Updated DateTime 5 185.42 cm 31.4 kg/m2 420394. 98 g 50 /min 98 % 98 % 130 mm[Hg] 80 mm[Hg] Mian Causey [facility] 5 09:59:07 Social History Question Answer Notes LastModified by Organizat ion Details LastModified Time Tobacco Smoking Status Current Every Day Smoker Cigars Daily (Avg 1-2/day) Mian zacarias [facility] 02/12/2025 09:58:05 What Was The Date Of Your Most Recent Tobacco Screening? 02/12/2025 [email or web address] Information not available 02/12/2025 Sex: Unknown Functional Status Question Answer Note LastModified by Organization D etails LastModified Time Do you or have you ever used any other forms of tobacco or nicotine? No [email or web address] Information not available 01/26/2024 Mental Status None recorded. Family History Nothing Reported. Medical History No medical history recorded. Immunizations Vaccine Type Date Status Note Provider Nam e and Address Organization Details Recorded Time Influenza, split virus, quadrivalent, preservative 1 completed [facility] 09/24/2021 08:20:35 COVID-19, mRNA, LNP-S, PF, 100 mcg/0.5mL dose or 50 mcg/0.25mL dose 1 completed Matilde zacarias [facility] 11/16/2021 08:36:35 Influenza, split virus, quadrivalent, preservative 8 completed Matilde zacarias [facility] 10/17/2018 10:18:52 influenza, unspecified formulation 4 completed Tereza zacarias [facility] 09/23/2024 08:36:29 SARS-COV-2 (COVID-19) vaccine, UNSPECIFIED 4 minor zacarias [facility] 09/23/2024 08:36:36 Influenza, split virus, quadrivalent, preservative 0 completed Matilde zacarias [facility] 09/11/2020 08:15:22 Tdap 0 completed Ariadna zacarias [facility] 04/30/2021 11:18:47 Past Encounters Encounter ID Performer Location Encounter Start Date Encounter Closed Date Diagnosis/Indication Diagnosis SNOMED-CT Code Diagnosis ICD10 Code Diagnosis Note [id number] Castillo Luo [facility] [address] [facility], [place] [address] 08/06/2018 10:32:06 08/06/2018 12:00:54 Fracture of vertebral column 92222600 T14.8XXA fracture is post op for his verteb stabiliazt ion ; will be followed by surgeon and will be getting his pain med from surg Non-pressu re ulcer lower limb 744066379 L97.909 will use silver alginate daily Closed fra cture of multiple ribs 79096432 S22.42XA will change to tyl #3 as pt leery of oxy cod will have have him ask neuro to decrease to tyl 3 and then tramadol [id number] Castillo Luo [address],[place] [address] 08/17/2018 14:01:04 08/17/2018 16:05:44 Fracture of vertebral column 14410434 T14.8XXA fracture is post op for his verteb stabiliazt ion ; will be followed by surgeon and will be getting his pain med from surg will cont with tramadol and stop tyl#3 Non-pressu re ulcer lower limb 037943402 L97.909 will use silver alginate daily and this has been working quite well Psoriatic arthritis 1563 57009 L40.50 has become prominent lately but is manageable Solitary n odule of lung 651286120 R91.1 will need eval of this found on cxr [id number] Castillo Luo [address],[place] [address] 10/17/2018 09:43:26 10/17/2018 12:18:43 Hepatitis C screening 837531538 Z11.59 Impingemen t syndrome of shoulder region 564035174 M75.41 worse now with trauma historyl needs xray right shoulder and eval by ortho Solitary n odule of lung 050147722 R91.1 will need eval of this found on cxr CT was ordered but pt never called [id number] Castillo Luo [facility] [address] [facility],[place] [address] 10/24/2018 09:05:49 10/24/2018 10:56:49 Tendinitis of right rotator cuff 4679572622 9915023 M67.813 cortisone inj Osteoarthr itis of right glenohumeral joint 7745725988 447826 M19.011 [place]k [place] [id number] Castillo Luo [facility] [address] [facility],[place] [address] 10/26/2018 11:13:31 10/26/2018 15:55:05 Impingement syndrome of left shoulder region 0915199315 80854 M75.42 kenalog injection as noted well tolerated [id number] Castillo Luo [facility] Internal Medicine [address] [facility],[place] [address] 11/12/2018 15:26:35 11/12/2018 16:25:27 Multiple nodules of lung 828918062 R91.8 [id number] Castillo Luo [facility] Internal Medicine [address] [facility],[place] [address] 09/13/2019 15:41:09 09/13/2019 16:34:30 Fracture of vertebral column 41779104 T14.8XXA fracture is post op for his verteb stabilizat ion ;no longer followed by surgeon still having a major issue with pain after exertion cont to tell him to keep moving and being active Adult heal th examination 362337486 Z00.00 current physical check up is negativ e c/o having other issues like migraines [id number] Castillo Luo [facility] Internal Medicine [address] [facility], [place] [address] 05/07/2021 14:08:10 05/07/2021 15:10:57 Microscopic hematuria 835762793 R31.29 dipstick shows small infection will treat Psoriatic arthritis 1563 71855 L40.50 stable Non-pressu re ulcer lower limb 005457749 L97.909 resolved due from accident [id number] Castillo Luo [facility] Internal Medicine [address] [facility] [address],[place] [address] 06/30/2021 10:20:51 06/30/2021 12:01:02 Acute sinusitis 98523171 J01.00 will start on abxwill fu if no improvemen t [id number] Castillo Luo [facility] Internal Medicine [address] [facility],[place] [address] 07/13/2021 10:23:27 07/13/2021 16:08:46 Lumbago with sciatica 873687772 M54.42 will start on pred taper and tramadol for lumbago with sciatica [id number] Castillo Luo [facility] [address] [facility],[place] [address] 02/22/2022 09:28:53 02/22/2022 12:27:34 Active or passive immunization 850373543 Z23 utd Adult heal th examination 591284073 Z00.00 current physical check up is negative c/o having other issues like migraines Psoriatic arthritis 1563 34213 L40.50 has become prominent lately but is manageable Non-pressu re ulcer lower limb 066789323 L97.909 will use silver alginate daily and this has been working quite well [id number] Castillo Luo [facility] Internal Medicine [address] [facility],[place] [address] 08/18/2023 10:38:42 08/18/2023 12:17:22 Psoriatic arthritis 289865274 L40.59 stable Non-pressu re ulcer lower limb 631092398 L97.909 stable Lumbago with sciatica 9696477 M54.42 will start with treatment [id number] Castillo Luo [facility] Internal Medicine [address] [facility] [address],[place] [address] 01/26/2024 14:11:01 01/26/2024 16:06:22 Adult health examination 995346943 Z00.00 BP is excellent Lumbago with sciatica 20 5221285 M54.42 agreed to second opinion for injection with pain management Low back pain 411474854 M54.59 will continue medication PRNtake with foodstop if you develop GERD Psoriasis 0431806 L40.9 needs to f/u with dermatolog y, having worsening rash, spreadingw as really stable on the biologic but has not been to afford it [id number] Castillo Luo DO [facility] Internal Medicine [address],[place] [address] 02/12/2025 09:34:46 02/12/2025 10:41:45 Active or passive immunization 073823270 Z23 advised Adult heal th examination 219058985 Z00.00 BP is excellent Pain in penis 761727011 N48.89 will set up with uro consult Health Concerns Section Related Observation LastModified by Organization Detai ls LastModified Time None Recorded Concern Status LastModified by Organization Details LastModified Time None Recorded Advance Directives Directive None Recorded Payers Encounter Date Sequence Insurance Name Policy Number Policy Mckay Covered Member ID Mckay Member ID Guarantor Name 07/13/2021 1 [employer] (EPO) [id number] Volodymyr T Nadir [id number] Volodymyr T Nadir 02/22/2022 1 [employer] (EPO) [id number] Volodymyr T Nadir [id number] Volodymyr T Nadir 08/18/2023 1 [employer] (EPO) [id number] Volodymyr T Nadir [id number] Volodymyr T Nadir 01/26/2024 1 [employer] (EPO) [id number] Volodymyr T Nadir [id number] Volodymyr T Nadir 02/12/2025 1 [employer] (EPO) [id number] Volodymyr T Nadir [id number] Volodymyr T Nadir Notes Date Note [...] for acute flare up VALORIE GARCIA [address] [place], [address], [facility] Internal Medicine 07/13/2021 14:27:58 2 text/html Annual [...] for rechk and is doing ok Castillo Luo DO [address] [place], [address], [facility] Internal Medicine 02/22/2022 09:55:04 3 text/html c/o [...] imaging on his back VALORIE GARCIA [address] [place], [address], [facility] Medicine 08/18/2023 11:16:30 4 text/html Annual [...] of hearing Vision:no vision problems VALORIE GARCIA [address] [place] [address], [address], [facility] Medicine 01/26/2024 15:04:42 text/html Annual WellnessReported [...] of hearing Vision:no vision problems VALORIE GARCIA [address] [place] [address], [address], [facility] Medicine 02/12/2025 10:37:53
== END 2025-04-18 11:27 | disposition home or self-care (01) ==
LOC: HO.PMC 11:04
PROVIDERS: PCP Internal Medicine; Visit Provider Registered Nurse Emergency
DX: M51.369 Other intervertebral disc degeneration, lumbar region without mention of lumbar back pain or lower extremity pain (principal); M47.816 Spondylosis without myelopathy or radiculopathy, lumbar region; G58.9 Mononeuropathy, unspecified; M53.3 Sacrococcygeal disorders, not elsewhere classified; M46.1 Sacroiliitis, not elsewhere classified; G89.4 Chronic pain syndrome; G89.29 Other chronic pain
CPT/HCPCS: 99213; G2211

== ENCOUNTER → 2025-04-22 15:02 | Outpatient (BNV) | payer OTHER, SELFPAY | PROVIDERS: PCP Internal Medicine; Visit Provider Urology | DX: Z13.9 Encounter for screening, unspecified (principal) | CPT/HCPCS: 81003 ==

== ENCOUNTER 2025-04-23 14:27 | Outpatient (AMB) | payer OTHER, SELFPAY ==
--- NOTE | 2025-04-23 14:32 | A.OFFVIS_ITS ---
Intake Visit Reasons: intermittent penile pain Intake Note: Patient is present for INTERMITTENT PENILE PAIN Urology Medication:NONE Antibiotic Allergy:NONE Blood Thinner:NONE Hub Inventory Specialist Required: No Allergies No Known Allergies Allergy (Verified 04/23/25 14:33) HPI Comments Details: Rich is a pleasant male. He is a patient of Dr. Luo. - intermittent penile pain On anti-inflammatories for psoriasis On exam symptoms consistent with recovered prostatitis PFSH Medical History Back complaints Social History Patient Tobacco Use Status: Current someday Tobacco user Tobacco use type: Cigar Review of Systems Const Denies chills and Denies fever(s) Card Reports no additional complaints and Denies syncope Resp Denies cough GI Denies abdominal pain and Denies heartburn Reports as per HPI and Denies change in libido Neuro Denies syncope Psych Denies change in libido Endo Denies change in libido Physical Exam Const General: cooperative, healthy appearing, comfortable and no acute distress Orientation/consciousness: patient oriented x3 HEENT Face and sinus: Yes normal facial exam Mouth: moist mucous membranes Neck Neck: Yes normal visual inspection, Yes full ROM and Yes trachea midline Chest Chest palpation & inspection: normal inspection of the chest Resp Effort & Inspection: normal respiratory effort, able to speak in complete sentences and no respiratory distress GI Inspection: Yes normal to inspection Rectal Exam - Male: Yes normal sphincter tone and Yes prostate normal Male General Exam: Yes normal external exam Penis: normal penis and circumcised Meatus: meatus normal Scrotum: scrotum normal Testes: Testes normal Back/Spine/Pelvis Cervical Spine: normal cervical lordosis Thoracic/Lumbar Spine: thoracic and lumbar spine normal to inspection Skin General skin exam: no rashes or lesions noted Neuro General: patient oriented x3, gait normal, tone normal and moves all extremities Extrem General: Yes normal to inspection and Yes capillary refill normal Assessment & Plan Assessment & Plan (1) Prostatitis: Code(s): N41.9 - Inflammatory disease of prostate, unspecified Category: Medical Plan Prostatitis resolved Six-month follow-up Orders: Orders AMB Urinalysis Automated 04/23/25 Z13.9 - Encounter for screening, unspecified Patient Instructions: This note is constructed using voice recognition software. While every effort has been made to ensure accuracy board winder errors may have been included. Imaging studies, laboratory and physical exam results were discussed and reviewed in detail. No major barriers to patient understanding were identified. An opportunity to ask questions regarding the treatment plan was provided. All questions were answered. The patient expressed understanding and agreement with the above treatment plan. The patient is aware they should contact our office by phone for worsening of their current condition or the appearance of new urologic symptoms. Compliance is encouraged with any medications and followup testing that is ordered. It is a privilege to participate in the urologic care of your patient. If you have any questions or concerns regarding treatment for the above conditions, or other urologic issues, please do not hesitate to contact me. The office telephone contact is [phone]. Sincerely, Dr Carlos Castillo MD, [facility] - Urology Compassionate Specialist Care for the Genitourinary System Coding Level of Care Code New Pt Level 3 (60850) Diagnoses Prostatitis N41.9
--- OUTSIDE RECORDS SUMMARY | 2025-04-23 15:20 | XMS_ITS | Data Portability ---
Author Organization [facility] Home Service Address [address] [place] [address] Assessment Encounter Date Assessment Date Assessment LastModified [...] Lab CMP, serum or plasma 2024 025 [facility], [facility] [place], [address], 02/17/2025 11:30:18 CBC w/ auto diff 2024 025 [facility], [place], [address], 02/12/2025 10:28:51 PSA, serum or plasma 2024 025 [facility], [place], [address], 02/12/2025 10:28:51 lipid panel, blood 2024 025 [facility], [place], [address], 02/12/2025 10:28:51 hemoglobi n A1c, QN, blood 2024 025 [facility], [address] [place] [address] [place], [address], 02/12/2025 10:28:51 vitamin D, 25-hydrox y, total, serum 2024 025 [facility], [address] [place] [address] [place], [address], 02/12/2025 10:28:51 CMP, serum or plasma 2023 024 [facility], [address] [place] [address], [address], 02/01/2024 11:28:12 CBC w/ auto diff 2023 024 [facility], [address] [place] [address], [address], 02/01/2024 11:28:13 lipid panel, blood 2023 024 [facility], [address] [place] [address], [address], 02/01/2024 11:28:13 PSA, serum or plasma 2023 024 [facility], [address] [place] [address], [address], 02/01/2024 11:28:13 hemoglobi n A1c, QN, blood 2023 024 [facility], [address] [place] [address], [address], 02/01/2024 11:28:13 vitamin D, 25-hydrox y, total, serum 2023 024 [facility], [address] [place] [address], [address], 02/01/2024 11:28:13 CMP, serum or plasma 2021 [facility], [address] [place] [address], [address], 02/23/2022 11:54:42 CBC w/ auto diff 2021 [facility], [address] [place] [address], [address], 02/22/2022 09:45:09 lipid panel, blood 2021 [facility], [address] [place] [address], [address], 02/23/2022 11:54:42 PSA, serum or plasma 2021 [facility], [address] [place] [address], [address], 02/22/2022 09:45:09 vitamin D, 25-hydrox y, total, serum 2021 [facility], [address] [place] [address], [address], 02/22/2022 09:45:09 TSH, serum or plasma 2021 [facility], [address] [place] [address], [place], [address], 02/22/2022 09:45:09 Referral urologist referral 2024 025 [email or web address] [facility], [address] [place] [address], [place], [address], 02/14/2025 08:32:52 pain managemen t referral - has hardware in place in his spine 2023 024 [email or web address] [facility], [address] [place] [address] Chao Zimmer, [place], [address], 01/29/2024 08:52:32 Procedures None recorded. Surgeries None recorded. Imaging XR, lumbosacr al spine, 2 or 3 view 2022 023 [facility], [address] [place] [address], [address], 08/21/2023 14:26:52 XR, hip, bilateral , 2 view - bilateral 2022 023 [facility], [address] [place], [address], 08/21/2023 14:27:05 Medication Orders nabumeton e 500 mg tablet 2023 024 [email or web address] [facility][id number], [address] [place], [address], 02/12/2025 09:56:51 prednison e 10 mg tablet 2020 021 [email or web address] [facility][id number], [address] [place], [address], 08/18/2023 10:47:23 tramadol 50 mg tablet 2020 021 [email or web address] [facility][id number], [address] [place], [address], 02/22/2022 09:32:45 Patient TargetsNo targets recorded. Patient [...] ast No observ ation record ed. [email or web address] [facility] (Medical Records) [address] [place], [address], 03/30/2023 23:19:13 08/21/20 23 08/18/2023 XR, lumbo sacra l spine , 2 or 3 view No observ ation record ed. [facility] Scheduling [address] [place], [address], 08/22/2023 12:50:05 08/21/20 23 08/18/2023 XR, hip, bilat eral, 2 view No observ ation record ed. [facility] [address] [place], [address], 08/22/2023 10:55:24 09/19/20 23 09/18/2023 MRI, lumba r spine , w/o contr ast No observ ation record ed. [facility] (Imaging) [address] [place], [address], 10/13/2023 12:14:02 08/21/20 24 06/25/2024 fluor oscop y evalu ation (PROC ) No observ ation record ed. [email or web address] [facility] (Medical Records) [address] [place], [address], 08/23/2024 10:54:18 Result Notes None recorded. Problems Name Problem SNOMED Code Status Onset Date Resolution Date Notes Provider Name and Address Organization Details Recorded Time Psoriatic arthritis 333463403 Active 2017 Not Available [facility] 19:18:46 Primary erectile dysfunctio n 619299078 Active 2017 Not Available [facility] 19:18:46 Disseminat ed idiopathic skeletal hyperostos is 51661432 Active 2017 Not Available [facility] 19:18:46 Impingemen t syndrome of shoulder region 418565553 Active 2017 Not Available [facility] 1 19:18:46 Fracture of vertebral column 87473080 Active 2017 Not Available [facility] 1 19:18:45 Fracture of tibia 41511678 Active 2017 Not Available [facility] 1 19:18:46 Fracture of rib 05211016 Active 2017 Not Available [facility] 1 19:18:45 Solitary nodule of lung 858286604 Active 2017 Not Available [facility] 1 19:18:45 Hypertrigl yceridemia 693132828 Active 2018 Not Available [facility] 1 19:18:45 Headache 87358523 Active 2021 VALORIE GARCIA [address] [place] [address], [address], [facility] 2 16:25:34 Allergic rhinitis 36614080 Active 2021 Castillo Luo DO [address] [place] [address], [address], [facility] 2 16:58:25 Dental abscess 880953443 Active 2021 VALORIE GARCIA [address] [place] [address], [address], [facility] 2 10:57:02 Non-pressu re ulcer lower limb Active 2022 VALORIE GARCIA [address] [place] [address], [address], [facility] 3 10:57:37 Lumbago with sciatica 438297415 Active 2022 VALORIE GARCIA [address] [place] [address], [address], [facility] 3 11:00:03 Spinal stenosis of lumbar region 85290027 Active 2022 VALORIE GARCIA [address] [place], [address], [facility] 3 09:12:36 Lumbar radiculopa thy 318065765 Active 2022 VALORIE GARCIA [address] [place], [address], [facility] Internal [facility] 3 12:15:04 Low back pain 101960788 Active 2023 VALORIE GARCIA [address] [place] [address], [address], [facility] Internal [facility] 4 10:50:33 Psoriasis 3161466 Active 2023 VALORIE GARCIA [address] [place] [address], [address], [facility] 4 14:59:37 Hyperlipid emia 44057636 Active 2023 VALORIE GARCIA [address] [place] [address], [address], [facility] 4 09:21:31 Pain in penis 967298894 Active 2024 VALORIE GARCIA [address] [place] [address], [address], [facility] 5 10:24:05 Problem Notes None recorded. Procedures Surgical History Date Name Laterality Status Provider Name and Address Organization Details Recorded Time 018 Corticosteroid Injection completed Castillo Luo DO [address] [place] [address], [address], [facility] 10/26/2018 11:45:03 018 Corticosteroid Injection completed Castillo Luo DO [address] [place] [address], [address], [facility] Internal [facility] 10/24/2018 09:37:34 015 Colonoscopy completed Matilde Quevedo [facility] 12/31/2019 15:05:54 Imaging Results None recorded. Procedure Notes None recorded. Medical Equipment None [...] Available Not Available Not Available amoxicillin 875 mg-potassiu m clavulanate 125 mg tablet TAKE 1 [...] Updated DateTime 4 182.88 cm 33.4 kg/m2 878951. 72 g 75 /min 98 % 98 % 124 mm[Hg] 68 mm[Hg] Shayy Helm [facility] 4 14:34:06 Date Recorded Body height Body mass index (BMI) Body weight Heart rate Oxygen saturation Oxygen saturation in Arterial blood by Pulse oximetry Systolic blood pressure Diastolic blood pressure Provider Name and Address Organization Details Last Updated DateTime 5 185.42 cm 31.4 kg/m2 152194. 98 g 50 /min 98 % 98 % 130 mm[Hg] 80 mm[Hg] Mian Causey [facility] Internal [facility] 5 09:59:07 Date Recorded Body height Body mass index (BMI) Body weight Heart rate Oxygen saturation Oxygen saturation in Arterial blood by Pulse oximetry Systolic blood pressure Diastolic blood pressure Provider Name and Address Organization Details Last Updated DateTime 2 184.79 cm 32.8 kg/m2 723828. 24 g 77 /min 98 % 98 % 124 mm[Hg] 72 mm[Hg] Castillo Luo, DO [address] [place], [address] 2 09:34:13 Social History Question Answer Notes LastModified by Organizat ion Details LastModified Time Tobacco Smoking Status Current Every Day Smoker Cigars Daily (Avg 1-2/day) Mian Causey [facility] 02/12/2025 09:58:05 What Was The Date Of Your Most Recent Tobacco Screening? 02/12/2025 [email or web address] Information not available 02/12/2025 Sex: Unknown Functional Status Question Answer Note LastModified by Organization D etails LastModified Time Do you or have you ever used any other forms of tobacco or nicotine? No [email or web address] Information not available 01/26/2024 Mental Status None recorded. Family History Nothing Reported. Medical History No medical history recorded. Immunizations Vaccine Type Date Status Note Provider Nam e and Address Organization Details Recorded Time Influenza, split virus, quadrivalent, preservative 1 completed Gayle zacarias [facility] 09/24/2021 08:20:35 COVID-19, mRNA, LNP-S, PF, 100 mcg/0.5mL dose or 50 mcg/0.25mL dose 1 completed Matilde zacarias [facility] Internal [facility] 11/16/2021 08:36:35 Influenza, split virus, quadrivalent, preservative 8 completed Matilde zacarias [facility] 10/17/2018 10:18:52 influenza, unspecified formulation 4 completed Tereza zacarias [facility] 09/23/2024 08:36:29 SARS-COV-2 (COVID-19) vaccine, UNSPECIFIED 4 completed Tereza zacarias [facility] 09/23/2024 08:36:36 Influenza, split virus, quadrivalent, preservative 0 completed Matilde zacarias [facility] 09/11/2020 08:15:22 Tdap 0 completed Ariadna zacarias [facility] 04/30/2021 11:18:47 Past Encounters Encounter ID Performer Location Encounter Start Date Encounter Closed Date Diagnosis/Indication Diagnosis SNOMED-CT Code Diagnosis ICD10 Code Diagnosis Note [id number] Castillo Luo [facility] [address] [place] [address],[place] [address] 08/06/2018 10:32:06 08/06/2018 12:00:54 Fracture of vertebral column 83941839 T14.8XXA fracture is post op for his verteb stabiliazt ion ; will be followed by surgeon and will be getting his pain med from surg Non-pressu re ulcer lower limb 922520599 L97.909 will use silver alginate daily Closed fra cture of multiple ribs 08629266 S22.42XA will change to tyl #3 as pt leery of oxy cod will have have him ask neuro to decrease to tyl 3 and then tramadol [id number] Castillo Luo [facility] [address] [facility],[place] [address] 08/17/2018 14:01:04 08/17/2018 16:05:44 Fracture of vertebral column 07697253 T14.8XXA fracture is post op for his verteb stabiliazt ion ; will be followed by surgeon and will be getting his pain med from surg will cont with tramadol and stop tyl#3 Non-pressu re ulcer lower limb 945176745 L97.909 will use silver alginate daily and this has been working quite well Psoriatic arthritis 1563 48163 L40.50 has become prominent lately but is manageable Solitary n odule of lung 311216738 R91.1 will need eval of this found on cxr [id number] Castillo Luo [facility] [address] [place] [address],[place] [address] 10/17/2018 09:43:26 10/17/2018 12:18:43 Hepatitis C screening 488637346 Z11.59 Impingemen t syndrome of shoulder region 612235746 M75.41 worse now with trauma historyl needs xray right shoulder and eval by ortho Solitary n odule of lung 305728048 R91.1 will need eval of this found on cxr CT was ordered but pt never called [id number] Castillo Luo [facility] Internal [address],[place] [address] 10/24/2018 09:05:49 10/24/2018 10:56:49 Tendinitis of right rotator cuff 0722519244 4638789 M67.813 cortisone inj Osteoarthr itis of right glenohumeral joint 6436941974 165910 M19.011 alek [place] [id number] Castillo Luo [facility] [address], [place] [address] 10/26/2018 11:13:31 10/26/2018 15:55:05 Impingement syndrome of left shoulder region 0578446501 40129 M75.42 kenalog injection as noted well tolerated [id number] Castillo Luo [facility] Internal [address], [place] [address] 11/12/2018 15:26:35 11/12/2018 16:25:27 Multiple nodules of lung 108589142 R91.8 [id number] Castillo Luo [facility] [address], [place] [address] 09/13/2019 15:41:09 09/13/2019 16:34:30 Fracture of vertebral column 24712114 T14.8XXA fracture is post op for his verteb stabilizat ion ;no longer followed by surgeon still having a major issue with pain after exertion cont to tell him to keep moving and being active Adult heal th examination 498642837 Z00.00 current physical check up is negativ e c/o having other issues like migraines [id number] Castillo Luo [facility] [address] [facility],[place] [facility] [place] [address] 05/07/2021 14:08:10 05/07/2021 15:10:57 Microscopic hematuria 341701889 R31.29 dipstick shows small infection will treat Psoriatic arthritis 1563 15172 L40.50 stable Non-pressu re ulcer lower limb 651341045 L97.909 resolved due from accident [id number] Castillo Luo [facility] [address] [facility],[place] [address] 06/30/2021 10:20:51 06/30/2021 12:01:02 Acute sinusitis 68319500 J01.00 will start on abxwill fu if no improvemen t [id number] Castillo Luo [facility] [address] [facility],[place] [address] 07/13/2021 10:23:27 07/13/2021 16:08:46 Lumbago with sciatica 880647390 M54.42 will start on pred taper and tramadol for lumbago with sciatica [id number] Castillo Luo [facility] [address] [facility],[place] [facility] [place] [address] 02/22/2022 09:28:53 02/22/2022 12:27:34 Active or passive immunization 287290551 Z23 utd Adult heal th examination 466103520 Z00.00 current physical check up is negative c/o having other issues like migraines Psoriatic arthritis 1563 88535 L40.50 has become prominent lately but is manageable Non-pressu re ulcer lower limb 846510300 L97.909 will use silver alginate daily and this has been working quite well [id number] Castillo Luo DO [facility] [address] [facility] [address] [place] [address] 08/18/2023 10:38:42 08/18/2023 12:17:22 Psoriatic arthritis 539389892 L40.59 stable Non-pressu re ulcer lower limb 990179424 L97.909 stable Lumbago with sciatica 20 7979300 M54.42 will start with treatment [id number] Castillo Luo DO [facility] [address] [facility] [address],[place] [facility] [place] [address] 01/26/2024 14:11:01 01/26/2024 16:06:22 Adult health examination 707578321 Z00.00 BP is excellent Lumbago with sciatica 20 4966478 M54.42 agreed to second opinion for injection with pain management Low back pain 905375834 M54.59 will continue medication PRNtake with foodstop if you develop GERD Psoriasis 5521920 L40.9 needs to f/u with dermatolog y, having worsening rash, spreadingw as really stable on the biologic but has not been to afford it [id number] Castillo Luo [facility] [address] [facility] [place] [place] [address] 02/12/2025 09:34:46 02/12/2025 10:41:45 Active or passive immunization 181895148 Z23 advised Adult heal th examination 032420676 Z00.00 BP is excellent Pain in penis 870318319 N48.89 will set up with uro consult Health Concerns Section Related Observation LastModified by Organization Detai ls LastModified Time None Recorded Concern Status LastModified by Organization Details LastModified Time None Recorded Advance Directives Directive None Recorded Payers Encounter Date Sequence Insurance Name Policy Number Policy Mckay Covered Member ID Mckay Member ID Guarantor Name 07/13/2021 1 [employer] (EPO) [id number] Volodymyr Chiara Nadir [id number] Volodymyr Guadarrama Nadir 02/22/2022 1 [employer] (EPO) [id number] Volodymyr Guadarrama Nadir [id number] Volodymyr Guadarrama Nadir 08/18/2023 1 [employer] (EPO) [id number] Volodymyr Guadarrama Nadir [id number] Volodymyr Guadarrama Nadir 01/26/2024 1 [employer] (EPO) [id number] Volodymyr Guadarrama Nadir [id number] Voloydmyr Guadarrama Nadir 02/12/2025 1 [employer] (EPO) [id number] Volodymyr Guadarrama Nadir [id number] Volodymyr Guadarrama Nadir Notes Date Note Type Note Provider [...] management for acute flare up VALORIE GARCIA [address] [place] [address], [address], [facility] 07/13/2021 14:27:58 2 text/html [...] is doing ok Castillo Luo DO [address] [place], [address], [facility] 02/22/2022 09:55:04 3 text/html [...] new imaging on his back VALORIE GARCIA [address] [place] [address], [address], [facility] 08/18/2023 11:16:30 4 text/html [...] of hearing Vision:no vision problems VALORIE GARCIA [address] [place] [address], [address], [facility] 01/26/2024 15:04:42 5 text/html Annual WellnessReported bypatient.Diet and Nutrition:healthy diet; [...] of hearing Vision:no vision problems VALORIE GARCIA [address] [place] [address], [address], [facility] 02/12/2025 10:37:53
== END 2025-04-23 15:01 | disposition home or self-care (01) ==
LOC: HO.HUSH 14:27
PROVIDERS: PCP Internal Medicine; Visit Provider Urology
DX: N41.9 Inflammatory disease of prostate, unspecified (principal)
CPT/HCPCS: 99203

== ENCOUNTER → 2025-04-23 14:27 | Outpatient (BNVA) | payer OTHER, SELFPAY | PROVIDERS: PCP Internal Medicine; Visit Provider Urology ==

== ENCOUNTER 2025-06-03 06:09 | Outpatient (REF) | payer OTHER, SELFPAY ==
--- NOTE | ~2025-06-03 | FL_ITS ---
EXAMINATION: FL GUIDANCE ONLY HISTORY: M53.3 - Sacrococcygeal disorders, not elsewhere classified COMPARISON: None available. TECHNIQUE: Fluoroscopy time: 0.1 minutes. Cumulative Dose: 1.92 mGy. DAP: 0.0161 mGym2 Images: 2. FINDINGS: Fluoroscopic spot films of the left hemipelvis demonstrate a needle and contrast material in the region of the sacroiliac joint. FL/FL guidance in treatment room IMPRESSION: Fluoroscopy during procedure. Please see procedure report for additional information. Electronically signed by: Matthew Perez MD 06/03/2025 07:46 AM EDT
--- OUTSIDE RECORDS SUMMARY | 2025-06-03 06:11 | XMS_ITS | Patient Health Record ---
Author Organization [facility] Address [address] [place] [address] Care Team Providers Care Icing Maker Name Role Phone Valerio GO, Castillo Primary Care Provider Nohemi Rangel Unavailable [phone] Allergies No Known Allergies Reason For Referral No Information Medications Medication SIG (Take, Route, Fr equency, Duration) Notes Start Date End Date Status Loratadine 10 MG TAKE 1 TABLET BY RODRIGO TH EVERY DAY Oral; Duration: 30 Days Active Social History Tobacco Use: [...] Date Coverage End Date [employer] [address] [place] [address] [id number] NadirVolodymyr Self - patient is the insured Medical (General) History Medical History History ICD Code Back,Hip,and Knee pain Broken bones CAD (Cholesterol) Headaches/Migraines Numbness Psoriasis/eczema Reflux ( GERD) Chicken pox Joint implants/screws Surgical History Surgery Date(Month/Year) back surgery 2017
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
== END 2025-06-03 06:10 | disposition home or self-care (01) ==
LOC: CF 06:09
PROVIDERS: Visit Provider Anesthesiology
DX: M46.1 Sacroiliitis, not elsewhere classified (principal); G89.29 Other chronic pain; M53.3 Sacrococcygeal disorders, not elsewhere classified
CPT/HCPCS: 27096; J2003; J2795; J3301; Q9967

== ENCOUNTER 2025-06-03 07:14 | Outpatient (AMB) | payer OTHER, SELFPAY ==
[2025-06-03 07:21] VITALS: BP 123/66; PULSE 56; RESP 18; O2SAT 98
--- NOTE | 2025-06-03 07:21 | A.OFFVIS_ITS ---
Vital Signs 06/03/25 07:21 Weight 240 lb BP 123/66 Blood Pressure Location Lt brachial Position Sitting Respiration 18 Pulse 56 Pulse Source Pulse Oximeter Pulse Oximetry (%) 98 Oxygen Delivery Method Room Air Intake Visit Reasons: LEFT THERAPEUTIC SIJ INJECTION Manager Utility Required: No Allergies No Known Allergies Allergy (Verified 04/23/25 14:33) [facility] Medical History Back complaints Social History Patient Tobacco Use Status: Current someday Tobacco user Tobacco use type: Cigar Physical Exam Vital Signs: Last Vital Signs Pulse 56 06/03/25 07:21 Resp 18 06/03/25 07:21 BP 123/66 06/03/25 07:21 Pulse Ox 98 06/03/25 07:21 Oxygen Delivery Method Room Air 06/03/25 07:21 Assessment & Plan Assessment & Plan (1) Sacroiliitis: Code(s): M46.1 - Sacroiliitis, not elsewhere classified Category: Medical (2) Chronic left SI joint pain: Code(s): M53.3 - Sacrococcygeal disorders, not elsewhere classified; G89.29 - Other chronic pain Category: Medical Plan Left therapeutic sacroiliac joint injection. Volodymyr is very pleasant 60 years old gentleman who came today in the injection area to receive therapeutic left sacroiliac joint injection. Informed consent was explained to the patient. Risks and benefits were known to the patient. The patient was positioned prone on operating table with pillow under the abdomen. The lower back of the patient was prepped with ChloraPrep and draped with sterile self adhesive utility towels. C-arm was brought over the operating field. The image of the left sacroiliac joint was demonstrated on the screen. Tilting machine contralateral to the site of the joint to the right 20 degrees the posterior portion of the sacroiliac joint was superimposed over the anterior portion of the sacroiliac joint silhouette. The local anesthetic mixture of lidocaine 2% mixed with ropivacaine 0.5% one-to-one was injected slightly medial to the projection of the silhouette of the join to the skin forming a skin wheal. After that 22 gauge 3-1/2 inch needle was inserted through the skin wheal and advanced to were the silhouette of the joint in tunnel vision fashion. When needle entered the silhouette of the joint injection of the contrast performed delineating arthrogram. After that injection of the ropivacaine 0.5% 4 mL mixed with Kenalog 40 mg was performed into the joint. The patient tolerated injection well. The needle was withdrawn Band-Aid was applied. He was taken outside of the operating room to recovery room where he recovered uneventfully. Orders: Orders FL guidance in treatment room Today M53.3 - Sacrococcygeal disorders, not elsewhere classified Coding Level of Care Code Procedure Only Diagnoses Sacroiliitis M46.1 Chronic left SI joint pain M53.3; G89.29
== END 2025-06-03 07:41 | disposition home or self-care (01) ==
LOC: HO.PMCPRC 07:14
PROVIDERS: PCP Internal Medicine; Visit Provider Anesthesiology
DX: M46.1 Sacroiliitis, not elsewhere classified (principal); M53.3 Sacrococcygeal disorders, not elsewhere classified; G89.29 Other chronic pain
CPT/HCPCS: 27096

== ENCOUNTER 2025-07-11 14:21 | Outpatient (AMB) | payer OTHER, SELFPAY ==
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
--- OUTSIDE RECORDS SUMMARY | 2025-07-11 14:23 | XMS_ITS | Encounter Summary ---
Author Organization [facility] Address [address] [place] [address] Phone Care Team Providers Care Director Of Collections Name Role Phone Castillo Luo DO Primary Care Provider [phone] Castillo Luo DO Unavailable Encounter Details Date Type Department Care Team (Late st Contact Info) Description 10/17/2018 Ancillary Orders Virtual Department [address] [place] [address] Castillo Luo DO [address] [facility] [place] [address] [email or web address] Impingement syndrome of right shoulder Social History Tobacco Use Types Packs/Day Years Used Date Smoking Tobacco: Never Assessed Sex and Gender Information Value Date Recorded Sex Assigned at Not on file Legal Sex Male 9:43 PM EDT Gender Identity Not on file Sexual Orientation Not on file documented as of this encounter Plan of Treatment Not on file documented as of this encounter Results * XR SHOULDER 2 VIEWS (RIGHT) (10/17/2018 11:52 AM EST) Anatomical Region Laterality Modality Shoulder Right Radiographic Xuan ging 10/17/2018 11:5 9 AM EST Impressions 10/17/2018 12:01 PM EST Mild degenerative changes at the glenohumeral and acromioclavicular joints. Small spurs at the inferior aspect of the acromioclavicular joint. Mild signs of calcific tendinitis. POS - [id number] Narrative 10/17/2018 12:01 PM EST HISTORY: Pain, impingement. COMPARISON: None VIEWS: Three views. FINDINGS: Mild marginal spurring at the glenohumeral joint. Mild hypertrophic change at the acromioclavicular joint, including small spurs inferiorly. No fractures, subluxations or dislocations. No suspicious lytic or blastic lesions within the bones. Tiny calcification adjacent to the lateral aspect of the humeral head. Procedure Note Marc Saleh MD - 10/17/2018 HISTORY: Pain, impingement. COMPARISON: None VIEWS: Three views. FINDINGS: Mild marginal spurring at the glenohumeral joint. Mild hypertrophicchange at the acromioclavicular joint, including small spurs inferiorly.No fractures, subluxations or dislocations. No suspicious lytic orblastic lesions within the bones. Tiny calcification adjacent to thelateral aspect of the humeral head. IMPRESSION: Mild degenerative changes at the glenohumeral and acromioclavicularjoints. Small spurs at the inferior aspect of the acromioclavicularjoint. Mild signs of calcific tendinitis. POS - [id number] Castillo Luo DO IMG XR UPPER EXTREMITY Final Res ult documented in this encounter Visit Diagnoses Diagnosis Impingement syndrome of right shoulder Impingement syndrome of right shoulder documented in this encounter Care Teams Director Of Collections Relationship Specialty Start Date End Date Castillo Luo DO PCP - General 11/30/17 Castillo Luo DO [address] [place] [address] [email or web address] Insurance Assigned Provider 03/30/19 documented as of this encounter Additional Source Comments The information contained in this document represents components of the legal health record. It is not the complete legal health record.[facility]
--- OUTSIDE RECORDS SUMMARY | 2025-07-11 14:23 | XMS_ITS | Patient Health Record ---
Author Organization [facility] Address [address] [place] [id number] Care Team Providers Care Steel Erector Name Role Phone Valerio GO, Castillo Primary Care Provider Nohemi Rangel Unavailable [phone] Allergies No Known Allergies Reason For Referral [...] Date Coverage End Date [employer] [address] [place] [address] [id number] Nadir, Volodymyr Self - patient is the insured Medical (General) History Medical History History ICD Code Back,Hip,and Knee pain Broken bones CAD (Cholesterol) Headaches/Migraines Numbness Psoriasis/eczema Reflux ( GERD) Chicken pox Joint implants/screws Surgical History Surgery Date(Month/Year) back surgery 2017
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
[2025-07-11 14:26] VITALS: BP 136/73; PULSE 78; RESP 16; O2SAT 97; BMI 29.6
== END 2025-07-11 15:11 | disposition home or self-care (01) ==
LOC: HO.PMC 14:21
PROVIDERS: PCP Internal Medicine; Visit Provider Registered Nurse Emergency
DX: M51.369 Other intervertebral disc degeneration, lumbar region without mention of lumbar back pain or lower extremity pain (principal); M47.816 Spondylosis without myelopathy or radiculopathy, lumbar region; G58.9 Mononeuropathy, unspecified; M53.3 Sacrococcygeal disorders, not elsewhere classified; M46.1 Sacroiliitis, not elsewhere classified; G89.4 Chronic pain syndrome; G89.29 Other chronic pain
CPT/HCPCS: 99213; G2211

== ENCOUNTER 2025-09-30 07:10 | Outpatient (REF) | payer OTHER, SELFPAY ==
--- NOTE | ~2025-09-30 | FL_ITS ---
EXAMINATION: FL GUIDANCE ONLY HISTORY: M46.1 - Sacroiliitis, not elsewhere classified COMPARISON: None available. TECHNIQUE: Fluoroscopy time: 12 seconds. Cumulative Dose: 4.60 mGy. DAP: 778.60 mGycm2 Images: 2. FINDINGS: Fluoroscopic spot films of the right hemipelvis demonstrate a needle and contrast material in the region of the sacroiliac joint. FL/FL guidance in treatment room IMPRESSION: Fluoroscopy during procedure. Please see procedure report for additional information. Electronically signed by: Matthew Perez MD 09/30/2025 03:39 PM EST
--- OUTSIDE RECORDS SUMMARY | 2025-09-30 07:13 | XMS_ITS | Patient Health Record ---
Author Organization [facility] Address [address] [place] [address] Care Team Providers Care Synthetic Filament Extruder Name Role Phone Valerio GO, Castillo Primary Care Provider Nohemi Rangel Unavailable [phone] Allergies No Known Allergies Reason For Referral [...] Date Coverage End Date [employer] [address] [place] [address] [id number] Nadir, Volodymyr Self - patient is the insured Medical (General) History Medical History History ICD Code Back,Hip,and Knee pain Broken bones CAD (Cholesterol) Headaches/Migraines Numbness Psoriasis/eczema Reflux ( GERD) Chicken pox Joint implants/screws Surgical History Surgery Date(Month/Year) back surgery 2017
--- OUTSIDE RECORDS SUMMARY | 2025-09-30 07:13 | XMS_ITS | Encounter Summary ---
Author Organization [facility] Address [address] [facility] [address] [place] [address] Phone Care Team Providers Care Strategic Partnership Specialist Name Role Phone Castillo Luo DO Primary Care Provider [phone] Encounter Details Date Type Department Care Team (Late st Contact Info) Description 09/12/2022 Transcribe Orders [address] [place] [address] Adrienne Perdomo, SAURAV [address] [facility] [address] [place] [address] Social History Tobacco Use Types Packs/Day Years Used Date Smoking Tobacco: Never Assessed Sex and Gender Information Value Date Recorded Sex Assigned at Not on file Legal Sex Male 9:43 PM EDT Gender Identity Not on file Sexual Orientation Not on file documented as of this encounter Plan of Treatment Not on file documented as of this encounter Visit Diagnoses Not on filedocumented in this encounter Care Teams Strategic Partnership Specialist Relationship Specialty Start Date End Date Castillo Luo DO PCP - General 11/30/17 documented as of this encounter Additional Source Comments The information contained in this document represents components of the legal health record. It is not the complete legal health record.[facility]
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
--- OUTSIDE RECORDS SUMMARY | 2025-09-30 07:13 | XMS_ITS | Encounter Summary ---
Author Organization [facility] Address [address] [place] [address] Phone Care Team Providers Care Laborer Carpentry Dock Name Role Phone Castillo Luo DO Primary Care Provider [phone] Castillo Luo DO Unavailable Encounter Details Date Type Department Care Team (Late st Contact Info) Description 10/17/2018 Ancillary Orders Virtual Department [address] [place] [address] Castillo Luo DO [address] [place] [address] [email or web address] Impingement syndrome of right shoulder Social History [...] shoulder documented in this encounter Care Teams Laborer Carpentry Dock Relationship Specialty Start Date End Date Castillo Luo DO PCP - General 11/30/17 Castillo Luo DO [address] [place] [address] [email or web address] Insurance Assigned Provider 03/30/19 documented as of this encounter Additional Source Comments The information contained in this document represents components of the legal health record. It is not the complete legal health record.[facility]
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
--- OUTSIDE RECORDS SUMMARY | 2025-09-30 07:13 | XMS_ITS | Clinical Summary ---
Author Organization [facility] Address [address] [place] [address] Phone Care Team Providers Care Software Lead Name Role Phone Castillo Luo Primary Care Provider [phone] Social History Tobacco Use Types Packs/Day Years Used Date Smoking Tobacco: Never Assessed Education Answer Date Recorded Are you interested in more education? Not on wilfredo e 03/24/2023 Are you concerned about learning? Not on file 03/24/2023 No 03/24/2023 No 03/24/2023 Digital Access Answer Date Recorded No 04/24/2023 No 04/24/2023 Reliable internet access at home? Not on file 04/24/2023 Device with a working camera? Not on file Sex and Gender Information Value Date Recorded Sex Assigned at Not on file Legal Sex Male 9:43 PM EDT Gender Identity Not on file Sexual Orientation Not on file Last Filed Vital Signs Vital Sign Reading Time Taken Comments Blood Pressure - - Pulse - - Temperature - - Respiratory Rate - - Oxygen Saturation - - Inhaled Oxygen Concentration - - Weight 111.1 kg (245 lb) 03/01/2017 3:46 AM EDT Height 187.3 cm (6' 1.75 ) 03/01/2017 3:46 AM ED T Body Mass Index 31.67 03/01/2017 3:46 AM EDT Plan of Treatment Health Maintenance Due Date Last Done Comments LIPID PANEL 1964 DEPRESSION SCREENING 1976 SMOKING Hx and SMOKELESS TOBACCO SCREENING 1977 HIV ONE-TIME SCREENING (18-6 5 YEARS) 1982 COLOGUARD 2009 COLONOSCOPY 2009 COLORECTAL CANCER SCREENING 2009 FIT TEST 2009 FOBT 2009 SIGMOIDOSCOPY 2009 VIRTUAL COLONOSCOPY 2009 PNEUMOCOCCAL VACCINES (50+ years) (1 of 1 - PCV) 2014 ZOSTER VACCINES (1 of 2) 2014 INFLUENZA VACCINE (#1) 2025 1, 09/25/2018 COVID-19 VACCINE (2 - 2024-2 6 season) 2025 11/13/2021 Adult Td,Tdap Booster 11/25/2030 11/25/2020 RSV VACCINE (1 - 1-dose 75+ series) 2039 HEPATITIS C SCREENING Completed 03/05/2019 HEPATITIS A VACCINES Aged Out No long er eligible based on patient's age to complete this topic HIB VACCINES Aged Out No longer eligi ble based on patient's age to complete this topic MENINGOCOCCAL VACCINES (ACWY) Aged Out No longer eligible based on patient's age to complete this topic MENINGOCOCCAL VACCINES (B) Aged Out N o longer eligible based on patient's age to complete this topic Medical Devices Not on file Insurance AETNA PPO AETNA PPO AETNA PPO AETNA PPO AETNA PPO AETNA PPO AETNA PPO AETNA PPO AETNA PPO Care Teams Software Lead Relationship Specialty Start Date End Date Castillo Luo DO PCP - General 11/30/17 Additional Source Comments The information contained in this document represents components of the legal health record. It is not the complete legal health record.[facility]
== END 2025-09-30 07:11 | disposition home or self-care (01) ==
LOC: CF 07:10
PROVIDERS: Visit Provider Anesthesiology
DX: M46.1 Sacroiliitis, not elsewhere classified (principal); M53.3 Sacrococcygeal disorders, not elsewhere classified
CPT/HCPCS: 27096; J2795; J3301; Q9967

== ENCOUNTER 2025-09-30 13:59 | Outpatient (AMB) | payer OTHER, SELFPAY ==
[2025-09-30 14:07] VITALS: BP 146/70; PULSE 82; RESP 16; O2SAT 98; BMI 29.6
--- NOTE | 2025-09-30 14:07 | A.OFFVIS_ITS ---
Vital Signs 09/30/25 14:07 09/30/25 14:38 Height 6 ft 1 in Weight 224 lb BMI 29.6 BP 146/70 H 154/74 H Blood Pressure Location Lt brachial Lt brachial Position Sitting Sitting Respiration 16 16 Pulse 82 70 Pulse Source Pulse Oximeter Pulse Oximeter Pulse Oximetry (%) 98 98 Oxygen Delivery Method Room Air Room Air Intake Visit Reasons: Right Therapeutic SIJ Injection Allergies No Known Allergies Allergy (Verified 07/11/25 14:27) PFSH Medical History Back complaints Social History Patient Tobacco Use Status: Current someday Tobacco user Tobacco use type: Cigar Physical Exam Vital Signs: Last Vital Signs Pulse 70 09/30/25 14:38 Resp 16 09/30/25 14:38 BP 154/74 H 09/30/25 14:38 Pulse Ox 98 09/30/25 14:38 Oxygen Delivery Method Room Air 09/30/25 14:38 BMI result Body Mass Index 29.6 Assessment & Plan Assessment & Plan (1) Sacroiliac joint dysfunction of right side: Code(s): M53.3 - Sacrococcygeal disorders, not elsewhere classified Category: Medical (2) Sacroiliitis: Code(s): M46.1 - Sacroiliitis, not elsewhere classified Category: Medical Plan Right therapeutic sacroiliac joint injection. Volodymyr is very pleasant 60 years old male suffering from sacroiliitis and sacroiliac joint dysfunction of the right. He came today to the operating room to receive therapeutic right SI joint injection. Informed consent was thoroughly explained to the patient risks and benefits were explained. The patient was positioned prone on the operating table with pillow under her abdomen. Time-out was performed delineating name and date of of the patient nature of the procedure and allergies of the patient. The lower back and upper buttocks were prepped with ChloraPrep and draped with sterile self adhesive utility towels. C-arm was brought over the operating field and sq picture of the right sacroiliac joint was demonstrated on the screen. Tilting C-arm contralateral to the left the posterior silhouette of the sacroiliac joint was superimposed on anterior silhouette of the sacroiliac joint. Slightly medial to the projection of the joint to the skin injection of the local anesthetic lidocaine 2% mixed with ropivacaine 0.5% mixed with Kenalog 40 mg was performed. After that 22 gauge 3-1/2 inch needle was driven to the point of interest in tunnel vision fashion. When tip of the needle entered posterior capsule of the joint injection of the contrast was performed delineating arthrogram. After that injection of the ropivacaine 0.5% 5 ml was performed. Upon completion of the injection needle was withdrawn sterile Band- Aid was applied. The patient tolerated the procedure well. Orders: Orders FL guidance in treatment room 09/30/25 M46.1 - Sacroiliitis, not elsewhere classified Coding Level of Care Code Procedure Only Diagnoses Sacroiliac joint dysfunction of right side M53.3 Sacroiliitis M46.1
[2025-09-30 14:38] VITALS: BP 154/74; PULSE 70; RESP 16; O2SAT 98
--- OUTSIDE RECORDS SUMMARY | 2025-09-30 17:00 | XMS_ITS | Encounter Summary ---
Author Organization [facility] Address [address] [facility] [address] [place] [address] Phone Care Team Providers Care Manager Hospital Name Role Phone Castillo Luo DO Primary Care Provider [phone] Encounter Details Date Type Department Care Team (Late st Contact Info) Description 09/12/2022 Transcribe Orders [address] [place] [address] Adrienne Perdomo, SAURAV [address] [facility] [address] [place] [address] Social History Tobacco Use Types Packs/Day Years [...] on filedocumented in this encounter Care Teams Manager Hospital Relationship Specialty Start Date End Date Castillo Luo DO PCP - General 11/30/17 documented as of this encounter Additional Source Comments The information contained in this document represents components of the legal health record. It is not the complete legal health record.[facility]
--- OUTSIDE RECORDS SUMMARY | 2025-09-30 17:00 | XMS_ITS | Clinical Summary ---
Author Organization [facility] Address [address] [place] [phone] Phone Care Team Providers Care Structures Assembler Name Role Phone Castillo Luo Primary Care Provider [phone] Social History Tobacco Use Types Packs/Day Years [...] PPO AETNA PPO AET[employer] PPO Care Teams Structures Assembler Relationship Specialty Start Date End Date Castillo Luo DO PCP - General 11/30/17 Additional Source Comments The information contained in this document represents components of the legal health record. It is not the complete legal health record.[facility]
--- OUTSIDE RECORDS SUMMARY | 2025-09-30 17:00 | XMS_ITS | Encounter Summary ---
Author Organization [facility] Address [address] [place] [address] Phone Care Team Providers Care Scrap Hoist Operator Name Role Phone Castillo Luo DO Primary Care Provider [phone] Castillo Luo DO Unavailable Encounter Details Date Type Department Care Team (Late st Contact Info) Description 10/17/2018 Ancillary Orders Virtual Department [address] [place] [address] Castillo Luo DO [address] [place] [address] [email or web address] Impingement syndrome of right shoulder Social History [...] shoulder documented in this encounter Care Teams Scrap Hoist Operator Relationship Specialty Start Date End Date Castillo Luo DO [email or web address] PCP - General 11/30/17 Castillo Luo DO [address] [place] [address] [email or web address] Insurance Assigned Provider 03/30/19 documented as of this encounter Additional Source Comments The information contained in this document represents components of the legal health record. It is not the complete legal health record.[facility]
== END 2025-09-30 14:38 | disposition home or self-care (01) ==
LOC: HO.PMCPRC 13:59
PROVIDERS: PCP Internal Medicine; Visit Provider Anesthesiology
DX: M53.3 Sacrococcygeal disorders, not elsewhere classified (principal); M46.1 Sacroiliitis, not elsewhere classified
CPT/HCPCS: 27096